=== PATIENT | male | born 1965 | race Caucasian/White ===

== ENCOUNTER → 2021-12-11 10:11 | Outpatient (BNVA) | payer BC, SELFPAY | PROVIDERS: PCP Nurse Practitioner Family; Visit Provider Nurse Practitioner Family | DX: J30.89 Other allergic rhinitis (principal); E11.9 Type 2 diabetes mellitus without complications | CPT/HCPCS: 80053; 80061; 83036; 84443; 85025; G0103 ==

== ENCOUNTER 2022-01-13 15:21 | Emergency (ER) | payer BC, SELFPAY ==
[2022-01-13 16:41] VITALS: BP 145/81; PULSE 74; RESP 18; TEMP 38.1; O2SAT 95
--- NOTE | 2022-01-13 17:37 | XRR_ITS ---
PROCEDURE INFORMATION: Exam: XR Chest Exam date and time: 01/13/2022 5:45 PM Age: 56 years old Clinical indication: Cough; Prior surgery; Surgery date: 6+ months; Surgery type: Stints; Patient HX: Covid+; Additional info: Dyspnea/cough TECHNIQUE: Imaging protocol: Radiologic exam of the chest. Views: 1 view. COMPARISON: No relevant prior studies available. FINDINGS: Lungs: Lungs are clear bilaterally. Pleural spaces: No pleural effusion. No pneumothorax. Heart/Mediastinum: The cardiac silhouette is mildly enlarged. Mediastinal contours are unremarkable. Bones/joints: Unremarkable for age. XR/XR chest 1V portable [id number] IMPRESSION: 1. No acute cardiopulmonary process. 2. Incidental/nonacute findings are listed in the report.
[2022-01-13 17:42] VITALS: O2SAT 97
[2022-01-13 17:43] VITALS: BP 157/91; PULSE 78; RESP 20; O2SAT 96
--- NOTE | 2022-01-13 17:53 | ED_ITS ---
HPI - COVID General: Chief Complaint: COVID symptoms Stated Complaint: Covid +, has hernias Time Seen by Provider: 01/13/22 17:37 Source: patient Mode of arrival: ambulatory History of Present Illness: 56-year-old male presents to the emergency room with cough congestion he had a positive COVID test yesterday. He has an abdominal wall hernia its been moderately tender he still having normal bowel movements no hematochezia or melena. He has not had any significant shortness of breath had a little myalgias headache and cough. MD complaint: known COVID positive Prior covid testing: yes, results known Prior testing date: 01/13/22 COVID 19 common symptoms: positive fever(s), chills, cough, non-productive co ugh, dyspnea and fatigue; negative productive cough, throat pain, nasal congestion, nausea, vomiting or diarrhea COVID 19 other sytmptoms: negative chest pain or requiring oxygen Onset (ago): day(s) Severity: mild Pertinent comorbid conditions: diabetes, hypertension and obesity Treatment prior to arrival: none COVID Results: No Data to Display Review of Systems Const: Reports: fever(s), chills, fatigue and malaise ENMT: Denies: throat pain, ear or mastoid pain, nasal discharge or nasal congestion Card: Denies: chest pain, edema, dyspnea on exertion or orthopnea Resp: Reports: dyspnea and non-productive cough; Denies: productive cough GI: Denies: abdominal pain, nausea, vomiting, hematemesis, coffee ground emesis, diarrhea, constipation, bloating, hematochezia or melena : Denies: flank pain, dysuria, urinary frequency or urinary urgency Skin/Breast: Denies: rash or pruritus PFSH ED PFSH: Medical History CAD (coronary artery disease) Environmental and seasonal allergies Essential hypertension GERD (gastroesophageal reflux disease) History of stomach cancer Hyperlipidemia Obstructive sleep apnea Type 2 diabetes mellitus Surgical History History of heart artery stent Hx of cholecystectomy Family History Father Diabetes Hyperlipidemia Hypertension Mother Hypertension Social History (Reviewed 12/11/21 @ 10:25 by TOMASA Arce Smoking and tobacco status: never smoked Second hand smoke exposure: No Smoking risk assessment/counseling performed?: Yes Alcohol intake: current Alcohol intake frequency: holidays/special occasions only Alcohol type: beer Desire information about alcohol rehabilitation?: No Counseling given: No Adopted: No Caregiver/support person: No Lives independently: Yes Household members: spouse Housing: Manufactured/Mobile home Marital status: Number of children: 2 Highest education level completed: Some College, No Degree service: Yes status: Retired branch: [employer] History of recent travel: No Physical Exam Const: GENERAL APPEARANCE: cooperative and comfortable ORIENTATION/CONSCIOUSNESS: Yes awake, Yes oriented to person, Yes oriented to place and Yes oriented to time HENMT: COMMON NORMALS: normocephalic, atraumatic and hearing grossly normal bilaterally HEAD & SCALP: normocephalic and atraumatic Resp: COMMON NORMALS: normal respiratory effort, No retractions and No use of accessory muscles AUSCULTATION: crackles and wheezes Cardio: COMMON NORMALS: regular rate, regular rhythm and No murmurs present (Cardio) RATE: regular rate RHYTHM: regular rhythm GI: COMMON NORMALS: Soft to palpation and No hepatosplenomegaly present AUSCULTATION: Yes normoactive bowel sounds PALPATION: Yes Soft to palpation, No Tenderness to palpation present (GI), No Guarding due to palpation present (GI) and Yes No hepatosplenomegaly present Extremity: COMMON NORMALS: normal to inspection, capillary refill normal, no clubbing, cyanosis or edema, no calf tenderness and no pedal edema Neuro: SENSORIUM/ORIENTATION: Yes oriented to person, Yes oriented to place and Yes oriented to time Skin: COMMON NORMALS: no rashes or lesions noted GENERAL SKIN EXAM: no rashes or lesions noted Course Vital Signs: Vital signs: Vital Signs Temperature 100.5 F H 01/13/22 16:41 Pulse Rate 71 01/13/22 18:49 Respiratory Rate 16 01/13/22 18:49 Blood Pressure 157/87 01/13/22 18:49 Pulse Oximetry 93 01/13/22 18:49 Oxygen Delivery Me thod 01/13/22 17:43 MDM - COVID Medical Decision Making Mild symptoms symptoms began 3 to 4 days ago. He already tested positive for COVID prior to coming to the ER. He is not requiring oxygen chest x-ray is unremarkable. He would like to use the Paxlovid. Given 5-day prescription of Paxlovid hold Ticlid during the time he is taking the Paxlovid. Recheck if has any worsening shortness of breath. Differential Diagnosis Likely COVID 19, influenza, bacterial infection, pneumonia and CHF exacerbation Medical Records I reviewed the patient's medical records. Lab Data I reviewed the patient's lab results. Radiology Impressions Chest X-Ray 01/13/22 17:37 IMPRESSION: 1. No acute cardiopulmonary process. 2. Incidental/nonacute findings are listed in the report. No Data to Display Discharge Plan Discharge Patient Disposition: Home Clinical Impression: COVID-19 Condition: Stable Prescriptions: New albuterol sulfate 90 mcg/actuation HFA aerosol inhaler 2 inh INHALATION Q4H PRN (Reason: bronchospasm) Qty: 18 0RF Paxlovid (EUA) 300 mg (150 mg x 2)-100 mg tablets,dose pack See Rx Instructions .ROUTE .COMPLEX Qty: 30 0RF Rx Instructions: orally per package directions Held ticagrelor 60 mg tablet 60 mg PO BID Qty: 180 2RF Hold Instructions: Resume on 01/18/22. No Action fexofenadine [Tootie Allergy] 60 mg tablet 60 mg PO BID aspirin 81 mg tablet,delayed release (DR/EC) 81 mg PO DAILY One-A-Day Men's Multivitamin 400-20-300 mcg tablet PO thiamine HCl (vitamin B1) 100 mg tablet 50 mg PO DAILY Zyrtec 10 mg capsule 10 mg PO DAILY PRN cinnamon bark [Cinnamon] 500 mg capsule 500 mg PO DAILY amlodipine 10 mg tablet 10 mg PO DAILY Qty: 90 1RF atorvastatin 80 mg tablet 80 mg PO DAILY Qty: 90 1RF carvedilol 12.5 mg tablet 12.5 mg PO BID Qty: 180 1RF Rx Instructions: must administer with a meal/food escitalopram oxalate 10 mg tablet 10 mg PO DAILY Qty: 90 1RF fenofibrate 160 mg tablet 160 mg PO DAILY Qty: 90 1RF hydrochlorothiazide 25 mg tablet 25 mg PO DAILY Qty: 90 1RF losartan 100 mg tablet 100 mg PO DAILY Qty: 90 1RF magnesium oxide 400 mg (241.3 mg magnesium) tablet 400 mg PO DAILY Qty: 90 1RF Bydureon BCise 2 mg/0.85 mL auto-injector 2 mg SUBCUT Q7D Qty: 10.2 1RF famotidine 20 mg tablet 20 mg PO DAILY Qty: 90 1RF metformin 500 mg tablet extended release 24 hr 1,000 mg PO DAILY 90 Days Qty: 180 1RF Discharge Orders: Discharge ED (Routine); Ordered 01/13/22 Ordered By: Jc Jeronimo Referrals: Antonia Allen FNP-C [Primary Care Provider] - Discharge Diet: Advance as tolerated Discharge Activity: Resume usual activity Patient Instructions: COVID-19 (Coronavirus Disease 2019) (ED) Coding Level of Care Code ED Museum Guide for Angel Garza
[2022-01-13 18:00] VITALS: BP 169/91; PULSE 77; O2SAT 97
[2022-01-13] MEDS: dexamethasone 10 mg/mL INJ IM (18:21)
[2022-01-13 18:49] VITALS: BP 157/87; PULSE 71; RESP 16; O2SAT 93
== END 2022-01-13 18:49 | disposition home or self-care (01) ==
PROVIDERS: Emergency Provider Family Medicine; PCP Nurse Practitioner Family
DX: U07.1 COVID-19 (principal); Z79.82 Long term (current) use of aspirin; Z79.84 Long term (current) use of oral hypoglycemic drugs; I25.10 Atherosclerotic heart disease of native coronary artery without angina pectoris; I10 Essential (primary) hypertension; E78.5 Hyperlipidemia, unspecified; E11.9 Type 2 diabetes mellitus without complications; Z85.028 Personal history of other malignant neoplasm of stomach
CPT/HCPCS: 71045; 96372; 99284; J1100

== ENCOUNTER → 2022-03-11 08:24 | Outpatient (BNVA) | payer BC, SELFPAY | PROVIDERS: PCP Nurse Practitioner Family; Visit Provider Nurse Practitioner Family | DX: S89.91XA Unspecified injury of right lower leg, initial encounter (principal); W10.2XXA Fall (on)(from) incline, initial encounter | CPT/HCPCS: 73560; 73565 ==

== ENCOUNTER 2022-03-11 09:39 | Outpatient (CLI) | payer BC, SELFPAY | END 2022-03-11 09:40 | disposition home or self-care (01) | LOC: SPT 09:40 | PROVIDERS: PCP Nurse Practitioner Family; Visit Provider Nurse Practitioner Family | DX: Z46.89 Encounter for fitting and adjustment of other specified devices (principal); M25.561 Pain in right knee | CPT/HCPCS: 97760; L1812 ==

== ENCOUNTER 2022-04-04 14:49 | Outpatient (CLI) | payer BC, SELFPAY ==
--- NOTE | 2022-04-04 15:00 | MR_ITS ---
WS: [id number] MRI RIGHT KNEE HISTORY: knee injury, progressive knee pain. Fall one month ago. COMPARISON: 04/03/2021 Anterior cruciate ligament: Intact. Posterior cruciate ligament: Abnormal signal throughout the posterior cruciate ligament. There is int erruption of the distal fibers. Proximal to the interruption there is thickening of the ligament. Medial collateral ligament: Mild displacement of the MCL by the meniscus and osteophytes. There is ed dawn surrounding the MCL. No full-thickness tear. Posterior lateral corner structures: Intact. Medial menisci: Mild surface fraying involving the anterior and posterior horns. No definite tears. Lateral meniscus: Abnormal signal involving the posterior horn and abnormal shape extending towards t he meniscal root. Suspicious for complex tear. Extensor mechanism: Distal quadriceps tendon and patellar tendons are intact. Fluid and soft tissue: Moderate joint effusion. There is extensive soft tissue edema surrounding the knee and extending posterior to the femoral condyles. No Betancourt's cyst. Osseous and articular structures: Patellofemoral compartment: Moderate narrowing of the patellofemoral joint with moderate chondromalac ia. Hepatic and loss of cartilage over the lateral patellar facet. Mild lateral subluxation of the pa tella. Moderate sprain involving the medial patellar retinaculum. Medial compartment: Moderate narrowing medial compartment with chondromalacia. Small amount of marrow edema and subchondral cystic changes involving the anteriormost tibial plateau. Lateral compartment: Mild narrowing of the lateral compartment. 8mm area of chondromalacia involving the weightbearing surface of the femoral condyle. There is additional marrow edema involving the late ral femoral condyle. MR/MR knee RT wo con* [id number] IMPRESSION: 1. Abnormal PCL. Interruption of the distal PCL with loss of the normal fibers . New since 04/03/2021. Consistent with full-thickness tear. The remaining PCL i s of abnormal signal secondary to edema. 2. Complex tear posterior horn lateral meniscus towards the meniscal root. Hailee r contiguous with the abnormal signal in the PCL. 3. Mild sprain involving the MCL and the medial patellar retinaculum 4. Moderate-sized joint effusion. 5. Moderate narrowing patellofemoral joint with chondromalacia involving the l ateral patellar facet. 6. 8mm chondromalacia weightbearing surface lateral femoral condyle. 7. Mild marrow edema lateral femoral condyle.
== END 2022-04-04 14:50 | disposition home or self-care (01) ==
PROVIDERS: PCP Nurse Practitioner Family; Visit Provider Nurse Practitioner Family
DX: S83.281A Other tear of lateral meniscus, current injury, right knee, initial encounter (principal); S83.411A Sprain of medial collateral ligament of right knee, initial encounter; W19.XXXA Unspecified fall, initial encounter; R93.6 Abnormal findings on diagnostic imaging of limbs
CPT/HCPCS: 73721

== ENCOUNTER 2022-05-08 05:48 | Day surgery (SDC) | payer BC, SELFPAY ==
[2022-05-07 13:52] VITALS: BMI 40.8
[2022-05-08] VITALS (11 sets, daily range): BP systolic 109–142; BP diastolic 68–84; PULSE 54–65; RESP 10–18; TEMP 36.2–36.3; O2SAT 92–95
[2022-05-08] MEDS: sodium chloride 0.9% 1,000 ML 30 ML IV (06:11)
[2022-05-08] MEDS: CELEcoxib 200 mg Capsule 400 MG PO (06:11)
[2022-05-08] MEDS: acetaminophen 500 mg Tablet 1000 MG PO (06:11)
[2022-05-08 06:16] LABS: Glucose Point of Care 153 mg/dL (70-110)
--- NOTE | 2022-05-08 07:08 | W.PM.OPSUD ---
Surgery/Procedure H&P Update DATE OF PROCEDURE: May 08, 2022 DATE H&P PERFORMED: 04/15/22 H&P UPDATE INFORMATION: I have reviewed H&P completed within last 30 days PREOP DIAGNOSIS: Right medial meniscal tear PLANNED PROCEDURE: Operation Date: 05/08/22 07:00 Proposed Procedures p right knee arthroscopy/ [id number],S83.206A(Right) - Yevgeniy Nugent MD
[2022-05-08] MEDS: ceFAZolin 2,000 MG in sodium chloride 0.9% (plus) 50 ML 100 MG IV (07:14)
--- NOTE | 2022-05-08 07:18 | P.ANESASSM_ITS ---
Pre-Anesthetic Assessment Height/Weight: Height 1.85 m Weight 140.614 kg Temp Pulse Resp BP Pulse Ox O2 Del Method 97.2 F L 65 18 142/83 93 05/08/22 06:04 05/08/22 06:04 05/08/22 06:04 05/08/22 06:04 05/08/22 06:04 05/08/22 06:04 Preop Diagnosis: Right medial meniscal tear Operation Date: 05/08/22 07:00 Proposed Procedures p right knee arthroscopy/ [id number],S83.206A(Right) - Yevgeniy Nugent MD Familial anesthetic complications: none Was Beta Holli taken within 24 hours: Yes Was Clonidine taken within 24 hours: N/A Last intake: Intake Last Liquid Date 05/07/22 Last Liquid Time 20:00 Last Solid Date 05/07/22 Last Solid Time 18:00 Social Alcohol and No tobacco Exam alert, oriented x 3, clear to auscultation bilaterally and regular rate & rhythm Airway Submandibular: within normal limits Cervical ROM: within normal limits Mallampati: Class II Dentition: full Pulmonary Sleep Apnea CV/HEM Coronary Artery Disease (stent) and Hypertension GI Gastroesophageal Reflux Disease Metabolic Diabetes Mellitus, Hyperlipidemia and Morbid Obesity Anesthetic Plan ASA status: 3 Anesthesia: General Medications/Allergies Home Medications Medication Instructions Recorded Confirmed Last Taken Type aspirin 81 mg tablet,delayed 81 mg PO DAILY 09/02/21 05/07/22 05/02/22 History release cetirizine 10 mg capsule (Zyrtec) 10 mg PO DAILY PRN Allergy Symptoms 09/02/21 05/07/22 05/07/22 History cinnamon bark 500 mg capsule 500 mg PO DAILY 09/02/21 05/07/22 05/07/22 History (Cinnamon) fexofenadine 60 mg tablet (Tootie 60 mg PO BID 09/02/21 05/07/22 05/07/22 History Allergy) vkeffvar-iroksele-vssgu acid 400 1 tab PO DAILY 09/02/21 05/07/22 05/07/22 History mcg-vit K 20 mcg-lycop 300 mcg tablet (One-A-Day Men's Multivitamin) thiamine HCl (vitamin B1) 100 mg 50 mg PO DAILY 09/02/21 05/07/22 05/07/22 History tablet amlodipine 10 mg tablet 10 mg PO DAILY #90 tabs 12/11/21 05/07/22 05/07/22 Rx atorvastatin 80 mg tablet 80 mg PO DAILY #90 tabs 12/11/21 05/07/22 05/07/22 Rx carvedilol 12.5 mg tablet 12.5 mg PO BID #180 tabs 12/11/21 05/07/22 05/08/22 Rx escitalopram oxalate 10 mg tablet 10 mg PO DAILY #90 tabs 12/11/21 05/07/22 05/07/22 Rx exenatide microspheres 2 mg/0.85 2 mg (0.85 mL) SUBCUT Q7D #10.2 mL 12/11/21 05/07/22 05/03/22 Rx mL subcutaneous auto-injector ([employer]) fenofibrate 160 mg tablet 160 mg PO DAILY #90 tabs 12/11/21 05/07/22 05/07/22 Rx hydrochlorothiazide 25 mg tablet 25 mg PO DAILY #90 tabs 12/11/21 05/07/22 05/07/22 Rx losartan 100 mg tablet 100 mg PO DAILY #90 tabs 12/11/21 05/07/22 05/07/22 Rx magnesium oxide 400 mg (241.3 mg 400 mg PO DAILY #90 tabs 12/11/21 05/07/22 05/07/22 Rx magnesium) tablet metformin 500 mg tablet,extended 1,000 mg PO DAILY 90 days #180 tabs 12/20/21 05/07/22 05/07/22 Rx release 24 hr HINGED KNEE BRACE #1 ea 03/11/22 04/30/22 Unknown Rx dapagliflozin 5 mg tablet (Farxiga) 5 mg PO DAILY 03/11/22 05/07/22 05/07/22 History tramadol 50 mg tablet 50 mg PO Q6H PRN pain #30 tabs 03/12/22 05/07/22 05/06/22 Rx ticagrelor 60 mg tablet 90 mg PO BID 04/30/22 05/07/22 05/02/22 History famotidine 20 mg tablet 20 mg PO BID 05/07/22 05/07/22 05/07/22 History Allergies Allergy/AdvReac Type Severity Reaction Status Date / Time blue dye Allergy ALGY-Hives Verified 03/11/22 08:14 Penicillins Allergy hives Verified 03/11/22 08:14 Current Medications Generic Name Dose Route Start Last Admin Trade Name Scarlett PRN Reason Stop Dose Admin Sodium Chloride 1,000 mls @ 30 mls/hr 05/08/22 06:00 05/08/22 06:11 Sodium Chloride 0.9% IV 05/09/22 05:59 30 mls/hr .Q24H KAYLA Administration Cefazolin Sodium 2,000 mg/ 50 mls @ 100 mls/hr 05/08/22 06:59 05/08/22 07:14 Sodium Chloride IV 05/08/22 07:28 100 mls/hr [employer] Administration Protocol [facility] Anesthesia Medical History CAD (coronary artery disease) Environmental and seasonal allergies Essential hypertension GERD (gastroesophageal reflux disease) History of stomach cancer Hyperlipidemia Obstructive sleep apnea Type 2 diabetes mellitus Surgical History History of heart artery stent Hx of cholecystectomy Family History Father Diabetes Hyperlipidemia Hypertension Mother Hypertension Social History Smoking and tobacco status: never smoked Second hand smoke exposure: No Smoking risk assessment/counseling performed?: Yes Alcohol intake: current Alcohol intake frequency: holidays/special occasions only Alcohol type: beer Desire information about alcohol rehabilitation?: No Counseling given: No Adopted: No Caregiver/support person: No Lives independently: Yes Household members: spouse Housing: Manufactured/Mobile home Marital status: Number of children: 2 Highest education level completed: Some College, No Degree service: Yes status: Retired branch: [employer] History of recent travel: No Data Anesthesia Cardiac Studies: No Data to Display
[2022-05-08] MEDS: morphine 4 mg/mL SDV 1 mL 8 MG XX (07:49)
--- NOTE | 2022-05-08 08:23 | P.OP_ITS ---
Operative Report Date of procedure: May 08, 2022 Pre-op diagnosis: Preop Diagnosis Right medial meniscal tear Post-op diagnosis: same Post-op diagnosis: Right medial and lateral meniscal tear, under malacia right knee Procedure done: Arthroscopic partial right medial and lateral meniscectomy Pathology: none sent Surgeon: Yevgeniy Nugent Anesthesia: General Estimated blood loss (mL): 5 Findings: The patient had degenerative tearing of the central 50% of the posterior medial meniscus but a intact meniscal root. He had degenerative flaps and tearing of the posterior third of the lateral meniscus with with an intact lateral meniscal root. There was thinning of the cartilage over the medial and lateral femoral condyles but no exposed subchondral bone in the medial or lateral compartment. He had exposed subchondral bone over the medial facet of the patella and far medial trochlea with fissuring and thinning over the lateral facet and lateral Disposition: PACU Procedure: Ho was taken to the operating room and given a general anesthesia. His right knee was prepped with ChloraPrep. The knee was infiltrated with 30 cc of 0.5% Marcaine and 8 mg of morphine. The leg was draped in the usual fashion. A timeout was performed. The was entered through a standard inferior medial and inferior lateral portal. The diagnostic portion arthroscopy is performed. Initial attention was paid to the medial meniscus. The medial meniscus was probed with a vertical tear identified in the posterior third of the meniscus. The root itself was probed and felt to be stable. Utilizing a straight basket the posterior third of the meniscus was debrided back. The rim was cleaned up with an incisor shaver and [employer] probe. This left approximately 50% of the posterior third of the meniscus behind. Generalized thinning was identified over the medial femoral condyle more so than the medial tibial plateau but no unstable flaps or fissures were identified to benefit from additional debridement. The leg was then placed in a [id number] position the lateral compartment explored. Complex tearing was identified in the posterior third of the lateral meniscus. A basket was introduced and the 6 central 30% of the meniscus removed. The rim was cleaned up with the [employer]rewolf probe. This left approximately 60% of the posterior lateral meniscus present. Again fibrillation and thinning was identified of the lateral femoral condyle but no unstable flaps or fissures were identified to benefit from additional debridement. Final attention was focused on the patellofemoral joint. Areas of full- thickness cartilage loss were identified over the lateral facet of the patella and lateral trochlea. Thinning and fibrillation was identified and over the medial facet of the patella and medial trochlea but really no unstable flaps and fissures were present to suggest additional treatment be worthwhile. The knee was irrigated with saline. Portals were closed with 3-0 Prolene. Sterile dressings were applied. The patient was extubated and taken to recovery room in stable condition.
--- NOTE | 2022-05-08 08:24 | PC.NURSE ---
Arouses with verbal stimulation
--- NOTE | 2022-05-08 08:28 | PC.NURSE ---
SaO2 88-89% on room air. Applied O2 @ 2l/nc. Pt wears cpap for TJ
[2022-05-08] MEDS: HYDROcodone-acetaminophen 5-325 mg Tablet 1 TAB PO (09:35)
--- NOTE | 2022-05-08 18:14 | ANE.PACU2 ---
Inpatient post-anesthesia follow up: Airway intact: Yes Vital signs: Temperature 97.3 F Pulse Rate 62 Respiratory Rate 16 Blood Pressure 120/73 Pulse Oximetry 93 Oxygen Delivery Me thod Nasal Cannula Oxygen Flow Rate 2 Fraction of Inspir ed Oxygen Hydration adequate: Yes Nausea and vomiting: No Pain level: 3 Mental status: Baseline
== END 2022-05-08 09:50 | disposition home or self-care (01) ==
PROVIDERS: PCP Nurse Practitioner Family; Visit Provider Orthopaedic Surgery
PROC: (CPT 29870; principal; 2022-05-08 07:00)
DX: S83.241A Other tear of medial meniscus, current injury, right knee, initial encounter (principal); X58.XXXA Exposure to other specified factors, initial encounter; M83.8 Other adult osteomalacia; G47.30 Sleep apnea, unspecified; I25.10 Atherosclerotic heart disease of native coronary artery without angina pectoris; Z95.5 Presence of coronary angioplasty implant and graft; I10 Essential (primary) hypertension; K21.9 Gastro-esophageal reflux disease without esophagitis; E11.9 Type 2 diabetes mellitus without complications; E78.5 Hyperlipidemia, unspecified; E66.01 Morbid (severe) obesity due to excess calories; Z68.41 Body mass index [BMI] 40.0-44.9, adult; Z79.82 Long term (current) use of aspirin; G47.33 Obstructive sleep apnea (adult) (pediatric)
CPT/HCPCS: 29880; 36416; 82962; J0330; J0690; J1100; J2250; J2270; J2405; J2704; J2710; J3010; J3490; J7030

== ENCOUNTER 2022-05-21 06:00 | Outpatient (RCR) | payer BC, SELFPAY | END 2022-06-20 23:59 | disposition home or self-care (01) | LOC: APT 06:00 | PROVIDERS: PCP Nurse Practitioner Family; Visit Provider Orthopaedic Surgery | DX: Z47.89 Encounter for other orthopedic aftercare (principal) | CPT/HCPCS: 97110; 97112; 97161 ==

== ENCOUNTER 2022-06-21 06:00 | Outpatient (RCR) | payer BC, SELFPAY | END 2022-07-20 23:59 | disposition home or self-care (01) | LOC: APT 06:00 | PROVIDERS: PCP Nurse Practitioner Family; Visit Provider Orthopaedic Surgery | DX: Z47.89 Encounter for other orthopedic aftercare (principal) | CPT/HCPCS: 97110; 97530 ==

== ENCOUNTER → 2022-07-30 09:09 | Outpatient (BNVA) | payer BC, SELFPAY | PROVIDERS: PCP Nurse Practitioner Family; Visit Provider Nurse Practitioner Family | DX: E11.9 Type 2 diabetes mellitus without complications (principal) | CPT/HCPCS: 80053; 80061; 83036; 84443; 85025 ==

== ENCOUNTER → 2022-09-17 08:20 | Outpatient (BNVA) | payer BC, SELFPAY | PROVIDERS: PCP Nurse Practitioner Family; Visit Provider Nurse Practitioner Family | DX: I10 Essential (primary) hypertension (principal) | CPT/HCPCS: 85025 ==

== ENCOUNTER 2023-02-25 09:37 | Outpatient (CLI) | payer BC, SELFPAY ==
--- NOTE | 2023-02-25 09:30 | USCV_ITS ---
Ho Lee Age: 57 Gender: M : 1965 Exam Date: 02/25/2023 10:05 Ordering Phys: Jackie Matthews MD ([email or web address]) Technologist: CAMERON [place] [facility] [place]: HISTORY: PROCEDURES: FINDINGS: LT SSV mid and prox calf are noncompressible. Pt has had a bilateral ablation . the veins were found to be easily compressible with spontaneous blood flow. Non pulsatile flow pattern. Venous reflux was noted in the mid small saphenous vein on the right side. The reflux time was 1.06 seconds. The venous segment was 0.63 cm deep from the surface with a diameter of 0.4 cm. Venous reflux of 1.28-second pause noted in the greater saphenous vein distal to the saphenofemoral junction on the left side. This segment was at the 1.09 cm deep from the surface. CONCLUSIONS 1. The small saphenous vein on the left side was found to be noncompressible suggesting thrombosis(? ablated) 2. Venous reflux of greater than 500 ms was noted at the mid small saphenous vein segment on the right side. But the vein was found to be very superficial. The mid, distal and below-knee segment of the greater saphenous vein on the right appeared to be a small caliber and superficial. 3. Venous reflux of greater than 500 ms also was noted in the greater saphenous vein just distal to the saphenofemoral junction, on the left side. This segment was of 1.06 cm deep from the surface and has a diameter of 0.5 by centimeters. The proximal and mid greater saphenous vein on the left side was visualized well. There is no documentation of venous flow in this segments. The distal and below-knee segment of the greater saphenous vein was found to be patent with some normal blood flow. 4. No significant reflux in the deep veins or any DVT Dr Delbert Culp MD FAC (Electronically Signed) Final Date: 27 February 2023 12:00 S
== END 2023-02-25 09:38 | disposition home or self-care (01) ==
LOC: RAD 09:37
PROVIDERS: PCP Nurse Practitioner Family; Visit Provider Internal Medicine Cardiovascular Disease
DX: I83.90 Asymptomatic varicose veins of unspecified lower extremity (principal)
CPT/HCPCS: 80053; 80061; 83036; 84443; 85025; 93970; G0103

== ENCOUNTER 2023-02-27 08:54 | Outpatient (CLI) | payer BC, SELFPAY ==
--- NOTE | 2023-02-27 09:30 | USCV_ITS ---
Ho Lee Age: 57 Gender: M : 1965 Exam Date: 02/27/2023 10:09 Ordering Phys: Jackie Matthews MD ([email or web address]) Technologist: Exam Location: [facility] [place] Indication: pain FINDINGS Resting CALLY of 1.16 on the right side and 1.12 on the left side Resting TBI of 0.894 0.94 on the right side and 0.9 on the left side CONCLUSIONS 1. Normal resting ABIs and TBIs bilaterally 2. No significant arterial obstruction, based on the above findings Dr Delbert Culp MD [facility] (Electronically Signed) Final Date: 27 February 2023 14:33 S
== END 2023-02-27 08:55 | disposition home or self-care (01) ==
LOC: RAD 08:55
PROVIDERS: PCP Nurse Practitioner Family; Visit Provider Internal Medicine Cardiovascular Disease
DX: I83.93 Asymptomatic varicose veins of bilateral lower extremities (principal); M79.89 Other specified soft tissue disorders; M79.669 Pain in unspecified lower leg
CPT/HCPCS: 93923

== ENCOUNTER → 2023-05-01 08:32 | Outpatient (BNVA) | payer BC, SELFPAY | PROVIDERS: PCP Nurse Practitioner Family; Visit Provider Urology | DX: N52.9 Male erectile dysfunction, unspecified (principal) | CPT/HCPCS: 84403; G0103 ==

== ENCOUNTER 2023-07-09 20:00 | Outpatient (CLI) | payer BC, SELFPAY | END 2023-07-09 20:01 | disposition home or self-care (01) | LOC: SLEEP 07-10 05:18 | PROVIDERS: PCP Nurse Practitioner Family; Visit Provider Nurse Practitioner Family | DX: G47.33 Obstructive sleep apnea (adult) (pediatric) (principal) | CPT/HCPCS: 95811 ==

== ENCOUNTER → 2023-07-28 15:05 | Outpatient (BNVA) | payer BC, SELFPAY | PROVIDERS: PCP Nurse Practitioner Family; Visit Provider Internal Medicine Cardiovascular Disease | DX: R07.9 Chest pain, unspecified (principal) | CPT/HCPCS: 93005 ==

== ENCOUNTER 2023-08-17 19:57 | Emergency (ER) | payer BC, SELFPAY ==
--- NOTE | 2023-08-17 20:00 | ECG_ITS ---
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 Measurements Intervals [place] Rate: 70 P: 40 SC: 153 QRS: 47 QRSD: 90 T: 84 QT: 383 QTc: 415 Interpretive Statements SINUS RHYTHM MODERATE T-WAVE ABNORMALITY, CONSIDER LATERAL ISCHEMIA [-0.1+ mV T-WAVE IN I/aVL/V5/V6] MODERATE T-WAVE ABNORMALITY, CONSIDER INFERIOR ISCHEMIA [-0.1+ mV T-WAVE IN II/aVF] Compared to ECG 07/28/2023 15:08:12 Possible ischemia now present T-wave abnormality still present Electronically Signed On 08-18-2023 16:50:51 CDT by Jose Muir M.D. [email or web address]
--- NOTE | 2023-08-17 20:00 | XRR_ITS ---
PROCEDURE INFORMATION: Exam: XR Chest Exam date and time: 08/17/2023 8:14 PM Age: 58 years old Clinical indication: Pain; Chest pressure; Additional info: Cp TECHNIQUE: Imaging protocol: Radiologic exam of the chest. Views: 1 view. COMPARISON: CR XR chest 1V portable [id number] 01/13/2022 5:45 PM FINDINGS: Lungs: Bibasilar atelectasis versus minimal infiltrate. Pleural spaces: Unremarkable. No pleural effusion. No pneumothorax. Heart/Mediastinum: Unremarkable. No cardiomegaly. Bones/joints: Unremarkable. XR/XR chest 1V portable [id number] IMPRESSION: Bibasilar atelectasis versus minimal infiltrate.
[2023-08-17 20:01] VITALS: BP 116/74; PULSE 68; RESP 24; TEMP 36.9; O2SAT 95; BMI 39.0
[2023-08-17 20:22] LABS: Basophils % 0.4 %; Eosinophils # 0.3 10^3/uL (0.0-0.8); Eosinophils % 4.8 %; Hematocrit 50.3 % (37-53); Lymphocytes # 1.7 10^3/uL (0.8-4.8); Lymphocytes % 30.3 %; Mean Corpuscular HGB Conc 34.2 g/dL (30-55); Mean Corpuscular Hemoglobin 32.3 pg (27-33); Mean Corpuscular Volume 94.4 fl (82-101); Mean Platelet Volume 10.2 fL (7.4-10.4); Monocytes # 0.9 10^3/uL (0.2-0.9); Monocytes % 15.4 %; Neutrophils # 2.75 10^3/uL (1.8-7.7); Neutrophils % 48.7 %; Nucleated Red Blood Cells % 0 %; Platelet Count 151 10^3/cmm (157-399); Red Blood Count 5.33 10^6/uL (3.85-5.65); Red Cell Distribution Width 12.9 % (12.1-15.1); White Blood Count 5.64 10^3/uL (3.29-11.43)
--- NOTE | 2023-08-17 20:23 | ED_ITS ---
Documented by User: [email or web address] Mo 08/17/23 22:30 HPI - Chest Pain 2 General: Chief Complaint: Chest Pain Stated Complaint: Chest pain/Tightness Time Seen by Provider: 08/17/23 20:11 Source: patient Mode of arrival: ambulatory Limitations: no limitations History of Present Illness: Patient is a 58-year-old male presenting to the emergency department complaining of fatigue and substernal chest pain for the past 2 days. Patient notes that these are identical symptoms to the ones he had back in 2020 when he had his first and only heart attack. He states he is just getting checked out before he gets worse. The pain over the past 2 days has been intermittent, currently he is not having the pain. He has of the pain, he comments that it is a pressure sensation that does not radiate and is only located substernally. He is denying any changes in breathing, stating he has a history of sleep apnea and he is always short of breath. He also states he always has swelling to his lower extremities and that this also has not worsened. He has a significant past medical history including diabetes and stomach cancer. He notes his cancer is in remission and his sugars have been running in the 200s lately, this is elevated for him. He sees Dr. Culp for cardiology, stating that he last saw them a month ago and had a routine EKG done which was unremarkable. He notes this is the only time he has seen cardiology this year and he has no recent echocardiogram or stress test. He does note history of stents stemming from his prior heart attack. He has no other symptoms to report at this time. He does comment that he has a history of acid reflux and that this does not feel similar. 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 Onset (ago): day(s) Timing of current episode: episodic Prior episodes: Yes Onset: during rest Pain location: substernal Pain radiation: none Severity: moderate Quality: other (Pressure) Associated symptoms: Deny abdominal pain, dyspnea, fever(s), nausea, palpitations or vomiting Risk Factors: Coronary artery disease risk factors: diabetes, hyperlipidemia and hypertension Review of Systems 2 General: Reports: 10 or more systems reviewed and unremarkable except in HPI and below Const: Reports: fatigue; Denies: fever(s) or chills Eyes: Denies: change in vision ENMT: Denies: throat pain, ear or mastoid pain or nasal discharge Card: Reports: chest pain; Denies: palpitations, swelling of feet/ankles or lightheadedness Resp: Denies: dyspnea, productive cough or wheezing GI: Denies: abdominal pain, nausea, vomiting, diarrhea or constipation : Denies: flank pain, difficulty urinating, dysuria or urinary frequency Musc: Denies: neck pain, back pain or joint pain Skin/Breast: Denies: rash Neuro: Denies: headache(s), numbness in extremities or weakness in extremities PFSH ED 2 PFSH: Medical History Obstructive sleep apnea CAD (coronary artery disease) History of stomach cancer Environmental and seasonal allergies Hyperlipidemia Essential hypertension GERD (gastroesophageal reflux disease) Type 2 diabetes mellitus Surgical History History of heart artery stent Hx of cholecystectomy Family History Father Diabetes Hyperlipidemia Hypertension Mother Hypertension Social History Smoking and tobacco/nicotine status: never used tobacco/nicotine Second hand smoke exposure: No Alcohol intake: current Alcohol intake frequency: holidays/special occasions only Alcohol type: beer Adopted: No Caregiver/support person: No Lives independently: Yes Household members: spouse Housing: Manufactured/Mobile home Marital status: Number of children: 2 Highest education level completed: Some College, No Degree service: Yes status: Retired branch: [employer] Physical Exam 2 Const: COMMON NORMALS: no acute distress, patient oriented x3 and no limitations GENERAL APPEARANCE: cooperative, comfortable and well developed NUTRITIONAL APPEARANCE: obese ORIENTATION/CONSCIOUSNESS: Yes awake, Yes oriented to person, Yes oriented to place and Yes oriented to time HENMT: COMMON NORMALS: normocephalic, atraumatic and hearing grossly normal bilaterally HEAD & SCALP: normocephalic and atraumatic Eye: COMMON NORMALS: Equal, round and reactive pupils present, EOMs intact bilaterally and conjunctivae normal CONJUNCTIVA: Yes conjunctivae normal P UPIL: Yes Equal, round and reactive pupils present Neck/C-Spine: COMMON NORMALS: full ROM, supple and no JVD Chest: COMMONS NORMALS: normal inspection of the chest and normal palpation of entire chest wall Resp: COMMON NORMALS: normal respiratory effort, No retractions, No use of accessory muscles and clear to auscultation bilaterally AUSCULTATION: clear to auscultation bilaterally Cardio: COMMON NORMALS: no JVD, regular rate, regular rhythm, No clicks present (Cardio) and No rub (Cardio) RATE: regular rate RHYTHM: regular rhythm HEART SOUNDS: Murmur heart sound present systolic GI: COMMON NORMALS: Normal to inspection, nondistended, normoactive bowel sounds present, Soft to palpation and non-tender INSPECTION: Yes central obesity AUSCULTATION: Yes normoactive bowel sounds PALPATION: Yes Soft to palpation RECTAL EXAM: Yes deferred Extremity: COMMON NORMALS: full ROM and capillary refill normal NARRATIVE EXTREMITY EXAM: 1+ edema bilaterally Neuro: COMMON NORMALS: patient oriented x3, moves all extremities, no focal motor deficits and no sensory deficits noted SENSORIUM/ORIENTATION: Yes oriented to person, Yes oriented to place and Yes oriented to time Psych: COMMON NORMALS: mental status grossly normal and Normal thought process present THOUGHT PROCESS: Normal thought process present Skin: COMMON NORMALS: no rashes or lesions noted GENERAL SKIN EXAM: no rashes or lesions noted Course 2 Vital Signs: Vital signs: Vital Signs Temperature 98.4 F 08/17/23 20:01 Pulse Rate 64 08/17/23 23:22 Respiratory Rate 18 08/17/23 23:22 Blood Pressure 125/69 08/17/23 23:22 Pulse Oximetry 94 08/17/23 23:22 Oxygen Delivery Me thod Room Air 08/17/23 20:41 MDM - Chest Pain Medical Decision Making Patient had presented for fatigue and chest pain for the past couple days. States he came in for precautionary purposes as these were symptoms he had with prior heart attack 3 years ago. His initial EKG showed normal sinus rhythm rate [address] segment changes. As per troponin unremarkable, and follow- up troponin did not demonstrate any concerning trends. Basic lab work all unremarkable, blood glucose was understandably elevated due to his history of type 2 diabetes. I did give him some p.o. potassium due to a very mild decrease, though I do not believe this is related to his fatigue. I did scan his abdomen with CT due to history of stomach cancer, though this did not demonstrate any acute findings or reasons for his fatigue. Chest x-ray revealed bibasilar atelectasis versus infiltrate, I also do not believe this is cause for his pain. Urinalysis was normal. I informed him of his essentially negative workup, and informed him to follow-up with his application support consultant this week or next for further outpatient management. He is to continue taking his [id number] famotidine for any potential GERD, as this may likely be a cause for his substernal pain, however also could potentially be musculoskeletal in nature. He is to take the rest of his medications as prescribed and additionally follow-up with primary care to discuss ED visit and any further outpatient management. Reasons to return were thoroughly discussed, and patient understands and is ready for discharge home. Lab Data 08/17/23 20:15 08/17/23 20:15 Radiology Impressions Chest X-Ray 08/17/23 20:00 IMPRESSION: Bibasilar atelectasis versus minimal infiltrate. Abdomen/Pelvis CT 08/17/23 20:44 IMPRESSION: 1. Urinary bladder wall thickening likely due to nondistention, please correlate for cystitis. 2. Hepatic steatosis. 3. Cholecystectomy. 4. Right kidney lower pole nonobstructing calyceal stone. 5. Left kidney cyst, negative for follow up. 6. Mild perinephric edema bilaterally likely reflecting renal insufficiency, please correlate for pyelonephritis. 7. Diverticulosis without diverticulitis. 8. Probable hyperdense ingested material seen at the gastroesophageal junction. Laboratory Results WBC 5.64 10^3/uL (3.29-11.43) 08/17/23 20:15 RBC 5.33 10^6/uL (3.85-5.65) 08/17/23 20:15 Hgb 17.20 g/dL (11.27-16.99) H 08/17/23 20:15 Hct 50.3 % (37-53) 08/17/23 20:15 MCV 94.4 fl (82-101) 08/17/23 20:15 MCH 32.3 pg (27-33) 08/17/23 20:15 MCHC 34.2 g/dL (30-55) 08/17/23 20:15 RDW 12.9 % (12.1-15.1) 08/17/23 20:15 Plt Count 151 10^3/cmm (157-399) L 08/17/23 20:15 MPV 10.2 fL (7.4-10.4) 08/17/23 20:15 Neut % (Auto) 48.7 % 08/17/23 20:15 Lymph % (Auto) 30.3 % 08/17/23 20:15 [place] % (Auto) 15.4 % 08/17/23 20:15 Eos % (Auto) 4.8 % 08/17/23 20:15 Baso % (Auto) 0.4 % 08/17/23 20:15 Neut # (Auto) 2.75 10^3/uL (1.8-7.7) 08/17/23 20:15 Lymph # (Auto) 1.7 10^3/uL (0.8-4.8) 08/17/23 20:15 [place] # (Auto) 0.9 10^3/uL (0.2-0.9) 08/17/23 20:15 Eos # (Auto) 0.3 10^3/uL (0.0-0.8) 08/17/23 20:15 Baso # (Auto) 0.0 10^3/uL (0.0-0.1) 08/17/23 20:15 Nucleated RBC % (auto) 0 % 08/17/23 20:15 Nucleated RBCs # 0.0 /100WBC 08/17/23 20:15 PT 12.40 SECONDS (12.1-14.9) 08/17/23 20:15 INR 0.90 (0.8-1.2) 08/17/23 20:15 Sodium 139 mmol/L (136-145) 08/17/23 20:15 Potassium 3.3 mmol/L (3.5-5.1) L 08/17/23 20:15 Chloride 102 mmol/L (98-107) 08/17/23 20:15 Carbon Dioxide 24 mmol/L (22-29) 08/17/23 20:15 Anion Gap 16.3 (5-19) 08/17/23 20:15 BUN 17 mg/dL (6-20) 08/17/23 20:15 Creatinine 1.0 mg/dL (0.7-1.2) 08/17/23 20:15 GFR Calculation 76.5 mL/min (90-130) L 08/17/23 20:15 Glucose 236 mg/dL (65-115) H 08/17/23 20:15 Calculated Osmolality 297 mOsm/kg (285-295) H 08/17/23 20:15 Calcium 9.2 mg/dL (8.5-10.5) 08/17/23 20:15 Total Bilirubin 0.5 mg/dL (0.15-1.2) 08/17/23 20:15 AST 29 U/L (0-40) 08/17/23 20:15 ALT 32 U/L (0-41) 08/17/23 20:15 Alkaline Phosphatase 77 U/L (40-130) 08/17/23 20:15 Troponin T Baseline 16 ng/L (0-15) H 08/17/23 20:15 Troponin T 120 Minute 16.62 ng/L (0-15) H 08/17/23 21:54 Delta Troponin T 0.62 ABS# (0-10) 08/17/23 21:54 Total Protein 7.7 g/dL (6.6-8.7) 08/17/23 20:15 Albumin 4.0 g/dL (3.5-5.2) 08/17/23 20:15 Globulin 3.7 g/dL (1.3-4.6) 08/17/23 20:15 Lipase 71 U/L (13-60) H 08/17/23 20:15 Urine Color Yellow (Yellow) 08/17/23 20:53 Urine Appearance Clear (CLEAR) 08/17/23 20:53 Urine pH 5 (5-7) 08/17/23 20:53 Ur Specific [place] 1.010 (1.005-1.030) 08/17/23 20:53 Urine Protein Neg (Negative) 08/17/23 20:53 Urine Glucose (UA) 4+ (Normal) H 08/17/23 20:53 Urine Ketones Negative (Negative) 08/17/23 20:53 Urine Blood Neg (Negative) 08/17/23 20:53 Urine Nitrate Negative (Negative) 08/17/23 20:53 Urine Bilirubin Neg (Negative) 08/17/23 20:53 Urine Urobilinogen Neg mg/dL (Negative) 08/17/23 20:53 Ur Leukocyte Esterase Negative (Negative) 08/17/23 20:53 All radiology interpretation(s) finalized by discharge Discharge Plan Discharge Patient Disposition: Home Clinical Impression: Chest pain Qualifiers: Chest pain type: unspecified Qualified Code(s): R07.9 - Chest pain, unspecified Condition: Stable Prescriptions: No Action (DME) HINGED KNEE BRACE See Rx Instructions .Route .MEDSUPPLY Qty: 1 0RF Rx Instructions: As directed naproxen [Naprosyn] 500 mg tablet 500 mg PO BID 30 Days Qty: 60 0RF naproxen [EC-Naprosyn] 500 mg tablet,delayed release (DR/EC) 500 mg PO Q12H 14 Days Qty: 28 0RF ondansetron HCl 4 mg tablet 4 mg PO Q8H PRN (Reason: nausea and vomiting) 3 Days Qty: 9 0RF carvedilol 12.5 mg tablet 12.5 mg PO BID Qty: 180 1RF Rx Instructions: must administer with a meal/food Farxiga 5 mg tablet 5 mg PO DAILY Qty: 90 1RF escitalopram oxalate 10 mg tablet 10 mg PO DAILY Qty: 90 1RF fenofibrate 160 mg tablet 160 mg PO DAILY Qty: 90 1RF hydrochlorothiazide 25 mg tablet 25 mg PO DAILY Qty: 90 1RF losartan 100 mg tablet 100 mg PO DAILY Qty: 90 1RF magnesium oxide 400 mg (241.3 mg magnesium) tablet 400 mg PO DAILY Qty: 90 1RF metformin 500 mg tablet extended release 24 hr 1,000 mg PO DAILY 90 Days Qty: 180 1RF famotidine 40 mg tablet 40 mg PO BID Qty: 180 1RF Bydureon BCise 2 mg/0.85 mL auto-injector 2 mg SUBCUT Q7D Qty: 10.2 1RF atorvastatin 80 mg tablet 80 mg PO DAILY Qty: 90 1RF amlodipine 10 mg tablet 10 mg PO DAILY Qty: 90 1RF (DME) CPAP auto titrating Machine w/supplies See Rx Instructions .Route .MEDSUPPLY Qty: 1 0RF Rx Instructions: As directed 99 months CPAP auto titrating machine w/supplies 6-20cm fexofenadine [Tootie Allergy] 60 mg tablet 60 mg PO BID aspirin 81 mg tablet,delayed release (DR/EC) 81 mg PO DAILY One-A-Day Men's Multivitamin 400-20-300 mcg tablet 1 tab PO DAILY thiamine HCl (vitamin B1) 100 mg tablet 50 mg PO DAILY Zyrtec 10 mg capsule 10 mg PO DAILY PRN (Reason: Allergy Symptoms) cinnamon bark [Cinnamon] 500 mg capsule 500 mg PO DAILY ticagrelor 60 mg tablet 90 mg PO BID Qty: 270 1RF Hold Instructions: Resume on 01/18/22. Discharge Orders: Discharge ED (Routine); Ordered 08/17/23 Ordered By: Valerio Dubose Referrals: Antonia Allen FNP-C [Primary Care Provider] - Discharge Diet: Usual diet Discharge Activity: Increase activity as tolerated Patient Instructions: Chest Pain (ED) Activity Restrictions/Additional Instructions: Continue taking your home medications as normal. Follow-up with cardiology this week as discussed. Please return with any new or worsening symptoms you may have. Coding Level of Care Code ED Oxygen Equipment Preparer for Chg Fwd Documented by User: Jc Jeronimo DO 08/24/23 07:27 HPI - Chest Pain 2 General: Chief Complaint: Chest Pain Stated Complaint: Chest pain/Tightness Time Seen by Provider: 08/17/23 20:11 [facility] ED 2 PFSH: Medical History Obstructive sleep apnea CAD (coronary artery disease) History of stomach cancer Environmental and seasonal allergies Hyperlipidemia Essential hypertension GERD (gastroesophageal reflux disease) Type 2 diabetes mellitus Surgical History History of heart artery stent Hx of cholecystectomy Family History Father Diabetes Hyperlipidemia Hypertension Mother Hypertension Social History Smoking and tobacco/nicotine status: never used tobacco/nicotine Second hand smoke exposure: No Alcohol intake: current Alcohol intake frequency: holidays/special occasions only Alcohol type: beer Adopted: No Caregiver/support person: No Lives independently: Yes Household members: spouse Housing: Manufactured/Mobile home Marital status: Number of children: 2 Highest education level completed: Some College, No Degree service: Yes status: Retired branch: [employer] Course 2 Vital Signs: Vital signs: Vital Signs Temperature 98.4 F 08/17/23 20:01 Pulse Rate 64 08/17/23 23:22 Respiratory Rate 18 08/17/23 23:22 Blood Pressure 125/69 08/17/23 23:22 Pulse Oximetry 94 08/17/23 23:22 Oxygen Delivery Me thod Room Air 08/17/23 20:41 MDM - Chest Pain Medical Decision Making Patient had presented for fatigue and chest pain for the past couple days. States he came in for precautionary purposes as these were symptoms he had with prior heart attack 3 years ago. His initial EKG showed normal sinus rhythm rate [address] segment changes. As per troponin unremarkable, and follow- up troponin did not demonstrate any concerning trends. Basic lab work all unremarkable, blood glucose was understandably elevated due to his history of type 2 diabetes. I did give him some p.o. potassium due to a very mild decrease, though I do not believe this is related to his fatigue. I did scan his abdomen with CT due to history of stomach cancer, though this did not demonstrate any acute findings or reasons for his fatigue. Chest x-ray revealed bibasilar atelectasis versus infiltrate, I also do not believe this is cause for his pain. Urinalysis was normal. I informed him of his essentially negative workup, and informed him to follow-up with his application support consultant this week or next for further outpatient management. He is to continue taking his [id number] famotidine for any potential GERD, as this may likely be a cause for his substernal pain, however also could potentially be musculoskeletal in nature. He is to take the rest of his medications as prescribed and additionally follow-up with primary care to discuss ED visit and any further outpatient management. Reasons to return were thoroughly discussed, and patient understands and is ready for discharge home. Chart reviewed Lab Data 08/17/23 20:15 08/17/23 20:15 Radiology Impressions Chest X-Ray 08/17/23 20:00 IMPRESSION: Bibasilar atelectasis versus minimal infiltrate. Abdomen/Pelvis CT 08/17/23 20:44 IMPRESSION: 1. Urinary bladder wall thickening likely due to nondistention, please correlate for cystitis. 2. Hepatic steatosis. 3. Cholecystectomy. 4. Right kidney lower pole nonobstructing calyceal stone. 5. Left kidney cyst, negative for follow up. 6. Mild perinephric edema bilaterally likely reflecting renal insufficiency, please correlate for pyelonephritis. 7. Diverticulosis without diverticulitis. 8. Probable hyperdense ingested material seen at the gastroesophageal junction. Laboratory Results WBC 5.64 10^3/uL (3.29-11.43) 08/17/23 20:15 RBC 5.33 10^6/uL (3.85-5.65) 08/17/23 20:15 Hgb 17.20 g/dL (11.27-16.99) H 08/17/23 20:15 Hct 50.3 % (37-53) 08/17/23 20:15 MCV 94.4 fl (82-101) 08/17/23 20:15 MCH 32.3 pg (27-33) 08/17/23 20:15 MCHC 34.2 g/dL (30-55) 08/17/23 20:15 RDW 12.9 % (12.1-15.1) 08/17/23 20:15 Plt Count 151 10^3/cmm (157-399) L 08/17/23 20:15 MPV 10.2 fL (7.4-10.4) 08/17/23 20:15 Neut % (Auto) 48.7 % 08/17/23 20:15 Lymph % (Auto) 30.3 % 08/17/23 20:15 [place] % (Auto) 15.4 % 08/17/23 20:15 Eos % (Auto) 4.8 % 08/17/23 20:15 Baso % (Auto) 0.4 % 08/17/23 20:15 Neut # (Auto) 2.75 10^3/uL (1.8-7.7) 08/17/23 20:15 Lymph # (Auto) 1.7 10^3/uL (0.8-4.8) 08/17/23 20:15 [place] # (Auto) 0.9 10^3/uL (0.2-0.9) 08/17/23 20:15 Eos # (Auto) 0.3 10^3/uL (0.0-0.8) 08/17/23 20:15 Baso # (Auto) 0.0 10^3/uL (0.0-0.1) 08/17/23 20:15 Nucleated RBC % (auto) 0 % 08/17/23 20:15 Nucleated RBCs # 0.0 /100WBC 08/17/23 20:15 PT 12.40 SECONDS (12.1-14.9) 08/17/23 20:15 INR 0.90 (0.8-1.2) 08/17/23 20:15 Sodium 139 mmol/L (136-145) 08/17/23 20:15 Potassium 3.3 mmol/L (3.5-5.1) L 08/17/23 20:15 Chloride 102 mmol/L (98-107) 08/17/23 20:15 Carbon Dioxide 24 mmol/L (22-29) 08/17/23 20:15 Anion Gap 16.3 (5-19) 08/17/23 20:15 BUN 17 mg/dL (6-20) 08/17/23 20:15 Creatinine 1.0 mg/dL (0.7-1.2) 08/17/23 20:15 GFR Calculation 76.5 mL/min (90-130) L 08/17/23 20:15 Glucose 236 mg/dL (65-115) H 08/17/23 20:15 Calculated Osmolality 297 mOsm/kg (285-295) H 08/17/23 20:15 Calcium 9.2 mg/dL (8.5-10.5) 08/17/23 20:15 Total Bilirubin 0.5 mg/dL (0.15-1.2) 08/17/23 20:15 AST 29 U/L (0-40) 08/17/23 20:15 ALT 32 U/L (0-41) 08/17/23 20:15 Alkaline Phosphatase 77 U/L (40-130) 08/17/23 20:15 Troponin T Baseline 16 ng/L (0-15) H 08/17/23 20:15 Troponin T 120 Minute 16.62 ng/L (0-15) H 08/17/23 21:54 Delta Troponin T 0.62 ABS# (0-10) 08/17/23 21:54 Total Protein 7.7 g/dL (6.6-8.7) 08/17/23 20:15 Albumin 4.0 g/dL (3.5-5.2) 08/17/23 20:15 Globulin 3.7 g/dL (1.3-4.6) 08/17/23 20:15 Lipase 71 U/L (13-60) H 08/17/23 20:15 Urine Color Yellow (Yellow) 08/17/23 20:53 Urine Appearance Clear (CLEAR) 08/17/23 20:53 Urine pH 5 (5-7) 08/17/23 20:53 Ur Specific [place] 1.010 (1.005-1.030) 08/17/23 20:53 Urine Protein Neg (Negative) 08/17/23 20:53 Urine Glucose (UA) 4+ (Normal) H 08/17/23 20:53 Urine Ketones Negative (Negative) 08/17/23 20:53 Urine Blood Neg (Negative) 08/17/23 20:53 Urine Nitrate Negative (Negative) 08/17/23 20:53 Urine Bilirubin Neg (Negative) 08/17/23 20:53 Urine Urobilinogen Neg mg/dL (Negative) 08/17/23 20:53 Ur Leukocyte Esterase Negative (Negative) 08/17/23 20:53 Discharge Plan Discharge Patient Disposition: Home Clinical Impression: Chest pain Qualifiers: Chest pain type: unspecified Qualified Code(s): R07.9 - Chest pain, unspecified Condition: Stable Prescriptions: No Action (DME) HINGED KNEE BRACE See Rx Instructions .Route .MEDSUPPLY Qty: 1 0RF Rx Instructions: As directed naproxen [Naprosyn] 500 mg tablet 500 mg PO BID 30 Days Qty: 60 0RF naproxen [EC-Naprosyn] 500 mg tablet,delayed release (DR/EC) 500 mg PO Q12H 14 Days Qty: 28 0RF ondansetron HCl 4 mg tablet 4 mg PO Q8H PRN (Reason: nausea and vomiting) 3 Days Qty: 9 0RF carvedilol 12.5 mg tablet 12.5 mg PO BID Qty: 180 1RF Rx Instructions: must administer with a meal/food Farxiga 5 mg tablet 5 mg PO DAILY Qty: 90 1RF escitalopram oxalate 10 mg tablet 10 mg PO DAILY Qty: 90 1RF fenofibrate 160 mg tablet 160 mg PO DAILY Qty: 90 1RF hydrochlorothiazide 25 mg tablet 25 mg PO DAILY Qty: 90 1RF losartan 100 mg tablet 100 mg PO DAILY Qty: 90 1RF magnesium oxide 400 mg (241.3 mg magnesium) tablet 400 mg PO DAILY Qty: 90 1RF metformin 500 mg tablet extended release 24 hr 1,000 mg PO DAILY 90 Days Qty: 180 1RF famotidine 40 mg tablet 40 mg PO BID Qty: 180 1RF Bydureon BCise 2 mg/0.85 mL auto-injector 2 mg SUBCUT Q7D Qty: 10.2 1RF atorvastatin 80 mg tablet 80 mg PO DAILY Qty: 90 1RF amlodipine 10 mg tablet 10 mg PO DAILY Qty: 90 1RF (DME) CPAP auto titrating Machine w/supplies See Rx Instructions .Route .MEDSUPPLY Qty: 1 0RF Rx Instructions: As directed 99 months CPAP auto titrating machine w/supplies 6-20cm fexofenadine [[place]ie Allergy] 60 mg tablet 60 mg PO BID aspirin 81 mg tablet,delayed release (DR/EC) 81 mg PO DAILY One-A-Day Men's Multivitamin 400-20-300 mcg tablet 1 tab PO DAILY thiamine HCl (vitamin B1) 100 mg tablet 50 mg PO DAILY Zyrtec 10 mg capsule 10 mg PO DAILY PRN (Reason: Allergy Symptoms) cinnamon bark [Cinnamon] 500 mg capsule 500 mg PO DAILY ticagrelor 60 mg tablet 90 mg PO BID Qty: 270 1RF Hold Instructions: Resume on 01/18/22. Discharge Orders: Discharge ED (Routine); Ordered 08/17/23 Ordered By: Valerio Dubose Referrals: Antonia Allen FNP-C [Primary Care Provider] - Discharge Diet: Usual diet Discharge Activity: Increase activity as tolerated Patient Instructions: Chest Pain (ED) Activity Restrictions/Additional Instructions: Continue taking your home medications as normal. Follow-up with cardiology this week as discussed. Please return with any new or worsening symptoms you may have. Coding Level of Care Code ED Oxygen Equipment Preparer for Angel Garza
[2023-08-17 20:39] LABS: Troponin(5th) Baseline 16 ng/L (0-15)
[2023-08-17 20:40] LABS: Alanine Aminotransferase 32 U/L (0-41); Alkaline Phosphatase 77 U/L (40-130); Anion Gap 16.3 (5-19); Aspartate Amino Transferase 29 U/L (0-40); Blood Urea Nitrogen 17 mg/dL (6-20); Calcium 9.2 mg/dL (8.5-10.5); Carbon Dioxide 24 mmol/L (22-29); Chloride 102 mmol/L (98-107); Creatinine Clr Calc Pharmacy 114.3509; Globulin 3.7 g/dL (1.3-4.6); Glomerular Filtration Rate 76.5 mL/min (90-130); Glucose 236 mg/dL (65-115); Lipase 71 U/L (13-60); Osmolality Calculated 297 mOsm/kg (285-295); Potassium 3.3 mmol/L (3.5-5.1); Sodium 139 mmol/L (136-145); Total Bilirubin 0.5 mg/dL (0.15-1.2); Total Protein 7.7 g/dL (6.6-8.7)
[2023-08-17 20:41] VITALS: BP 124/76; PULSE 66; RESP 17; O2SAT 93
--- NOTE | 2023-08-17 20:44 | CTR_ITS ---
PROCEDURE INFORMATION: Exam: CT Abdomen And Pelvis With Contrast Exam date and time: 08/17/2023 9:04 PM Age: 58 years old Clinical indication: Abdominal pain; Epigastric; Additional info: Epigastric pain/hx of stomach cancer TECHNIQUE: Imaging protocol: Computed tomography of the abdomen and pelvis with contrast. Radiation optimization: All CT scans at this facility use at least one of these dose optimization techniques: automated exposure control; mA and/or kV adjustment per patient size (includes targeted exams where dose is matched to clinical indication); or iterative reconstruction. Contrast material: OMNI 350; Contrast volume: 100 ml; Contrast route: INTRAVENOUS (IV); COMPARISON: CR (CHEST, ) 08/17/2023 8:14 PM RADIATION DOSE METRICS: Total DLP (mGy-cm): 1188 FINDINGS: Liver: Hepatic steatosis. Gallbladder and bile ducts: Cholecystectomy. Pancreas: Normal. No ductal dilation. Spleen: Normal. No splenomegaly. Adrenal glands: Normal. No mass. Kidneys and ureters: Right kidney lower pole nonobstructing calyceal stone. Left kidney cyst, negative for follow up. Mild perinephric edema bilaterally likely reflecting renal insufficiency, please correlate for pyelonephritis. Stomach and bowel: Diverticulosis without diverticulitis. Probable hyperdense ingested material seen at the gastroesophageal junction. Appendix: No evidence of appendicitis. Intraperitoneal space: Unremarkable. No free air. No significant fluid collection. Vasculature: Unremarkable. No abdominal aortic aneurysm. Lymph nodes: Unremarkable. No enlarged lymph nodes. Urinary bladder: Urinary bladder wall thickening likely due to nondistention, please correlate for cystitis. Reproductive: Unremarkable as visualized. Bones/joints: Unremarkable. No acute fracture. Soft tissues: Unremarkable. CT/CT abdomen pelvis w con* [id number] IMPRESSION: 1. Urinary bladder wall thickening likely due to nondistention, please correlate for cystitis. 2. Hepatic steatosis. 3. Cholecystectomy. 4. Right kidney lower pole nonobstructing calyceal stone. 5. Left kidney cyst, negative for follow up. 6. Mild perinephric edema bilaterally likely reflecting renal insufficiency, please correlate for pyelonephritis. 7. Diverticulosis without diverticulitis. 8. Probable hyperdense ingested material seen at the gastroesophageal junction.
[2023-08-17 21:00] LABS: Add Urine Microscopic? NO; Charge for UA Resulting for Rev
[2023-08-17] MEDS: potassium chloride ER 20 mEq Tablet 40 MEQ PO (21:01)
[2023-08-17] MEDS: sodium chloride 0.9% 1,000 ML 999 ML IV (21:02)
[2023-08-17] MEDS: iohexol 350 mg/mL 500 mL Btl (per mL) IV (21:08)
[2023-08-17 21:10] LABS: Bilirubin Urine Neg (Negative); Blood Urine Neg (Negative); Glucose Urine UA 4+ (Normal); Ketones Urine Negative (Negative); Leukocyte Esterase Urine Negative (Negative); Nitrate Urine Negative (Negative); Protein Urine Neg (Negative); Urine Appearance Clear (CLEAR); Urine Color Yellow (Yellow); Urobilinogen Urine Neg (Negative); pH Urine 5 (5-7)
--- NOTE | 2023-08-17 22:00 | ECG_ITS ---
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 Measurements Intervals [place] Rate: 59 P: 35 CA: 152 QRS: 37 QRSD: 94 T: -47 QT: 412 QTc: 409 Interpretive Statements SINUS BRADYCARDIA MODERATE T-WAVE ABNORMALITY, CONSIDER LATERAL ISCHEMIA [-0.1+ mV T-WAVE IN I/aVL/V5/V6] MODERATE T-WAVE ABNORMALITY, CONSIDER INFERIOR ISCHEMIA [-0.1+ mV T-WAVE IN II/aVF] Compared to ECG 07/28/2023 15:08:12 Possible ischemia now present Sinus rhythm no longer present T-wave abnormality still present Electronically Signed On 08-18-2023 16:53:18 CDT by Jose Muir M.D. [id number]
[2023-08-17 22:11] VITALS: BP 137/80; PULSE 63; RESP 24; O2SAT 94
[2023-08-17 22:21] LABS: Troponin 5 2HR 16.62 ng/L (0-15); Troponin 5 2HR Delta 0.62 ABS# (0-10)
[2023-08-17 23:22] VITALS: BP 125/69; PULSE 64; RESP 18; O2SAT 94
== END 2023-08-17 23:23 | disposition home or self-care (01) ==
PROVIDERS: Emergency Medicine; Emergency Provider Physician Assistant; PCP Nurse Practitioner Family
DX: R07.9 Chest pain, unspecified (principal); Z79.82 Long term (current) use of aspirin; Z79.84 Long term (current) use of oral hypoglycemic drugs; I25.10 Atherosclerotic heart disease of native coronary artery without angina pectoris; Z85.028 Personal history of other malignant neoplasm of stomach; E78.5 Hyperlipidemia, unspecified; I10 Essential (primary) hypertension; E11.9 Type 2 diabetes mellitus without complications
CPT/HCPCS: 71045; 74177; 80053; 81003; 83690; 84484; 85025; 85610; 93005; 96360; 99285; J7030; Q9967

== ENCOUNTER → 2023-08-19 09:03 | Outpatient (BNVA) | payer BC, SELFPAY | PROVIDERS: PCP Nurse Practitioner Family; Visit Provider Nurse Practitioner Family | DX: R07.9 Chest pain, unspecified (principal) | CPT/HCPCS: 80053; 84484; 85025 ==

== ENCOUNTER 2023-11-12 20:00 | Outpatient (CLI) | payer BC, SELFPAY | END 2023-11-12 20:01 | disposition home or self-care (01) | LOC: SLEEP 22:52 | PROVIDERS: PCP Nurse Practitioner Family; Visit Provider Nurse Practitioner Family | DX: G47.33 Obstructive sleep apnea (adult) (pediatric) (principal) | CPT/HCPCS: 95810 ==

== ENCOUNTER → 2024-02-11 14:04 | Outpatient (BNVA) | payer BC, SELFPAY | PROVIDERS: PCP Nurse Practitioner Family; Visit Provider Nurse Practitioner Family | DX: I10 Essential (primary) hypertension (principal); E11.9 Type 2 diabetes mellitus without complications; E78.49 Other hyperlipidemia | CPT/HCPCS: 80053; 80061; 83036; 84443; 85025; G0103 ==

== ENCOUNTER 2024-02-25 08:30 | Outpatient (CLI) | payer BC, SELFPAY ==
--- NOTE | 2024-02-25 08:45 | USCV_ITS ---
Ho Lee Age: 58 Gender: M : 1965 Exam Date: 02/25/2024 08:53 Ordering Phys: Delbert Culp MD ([email or web address]) Technologist: CT [place] [facility] [place]: BP: 135 / 89 HR: 57 Rhythm: Sinus Technical Quality: Adequate MEASUREMENTS (Male / Female) Normal Values 2D ECHO LVOT Diameter 2.3 cm LV Ejection Fraction MOD 4C 70.4 % LV Ejection Fraction MOD 2C 57.1 % LV Ejection Fraction 2C AL 57.8 % LA Diameter 5.3 cm RA Systolic Volume 4C AL 64.1 ml RA Systolic Volume 4C MOD 64.3 ml LA Sys Volume AL 77.1 cm cubed LA Sys Volume Index AL 28.0 cm cubed/m squared Aorta at Sinotubular Diameter 2.7 cm M-MODE LA Ao Ratio MM 1.8 AV Cusp Separation MM 1.6 cm DOPPLER AV Peak Velocity 241.3 cm/s LVOT Peak Velocity 153.0 cm/s AV Area Cont Eq vti 2.7 cm squared AV Area Cont Eq pk 2.7 cm squared MV Peak Velocity 109.0 cm/s MV Area PHT 2.6 cm squared Mitral E to A Ratio 0.9 TR Peak Velocity 172.0 cm/s TR Peak Gradient 11.8 mmHg TV Peak E Velocity 63.0 cm/s PV Peak Velocity 114.0 cm/s FINDINGS Left Ventricle Normal left ventricular size and systolic function, EF 65%.no regional wall motion abnormalities. Mild left ventricular hypertrophy. Grade I/IV diastolic dysfunction (abnormal relaxation filling pattern), normal to mildly elevated filling pressures. Right Ventricle The right ventricle is normal in size and function. Right Atrium The right atrium is normal in size. Left Atrium Mildly increased left atrial size. Mitral Valve No gross abnormalities noted Aortic Valve Aortic valve sclerosis. Peak velocity of 2.4 m/s Tricuspid Valve No gross abnormalities noted Pulmonic Valve Pulmonic valve not well visualized. Pericardium Normal pericardium without effusion. Aorta Normal ascending aorta dimension. IVC The inferior vena cava appears normal. CONCLUSIONS Normal left ventricular size and systolic function, EF 65%.no regional wall motion abnormalities. Mild left ventricular hypertrophy. Grade I/IV diastolic dysfunction (abnormal relaxation filling pattern), normal to mildly elevated filling pressures. Mildly increased left atrial size. Aortic valve sclerosis. Peak velocity of 2.4 m/s. There is no pericardial effusion. Pulmonary artery systolic pressure is within normal limits. No similar previous studies are available for comparison Dr Delbert Culp MD [facility] (Electronically Signed) Final Date: 05 March 2024 16:11 S
== END 2024-02-25 08:31 | disposition home or self-care (01) ==
LOC: RAD 08:30
PROVIDERS: PCP Nurse Practitioner Family; Visit Provider Internal Medicine Cardiovascular Disease
DX: I50.30 Unspecified diastolic (congestive) heart failure (principal); I70.0 Atherosclerosis of aorta; R06.09 Other forms of dyspnea
CPT/HCPCS: 93306

== ENCOUNTER 2024-02-25 15:48 | Outpatient (CLI) | payer BC, SELFPAY ==
[2024-02-25] MEDS: iohexol 350 mg/mL 500 mL Btl (per mL) PO (16:08)
--- NOTE | 2024-02-25 17:00 | CT_ITS ---
WS: [id number] CT ABDOMEN AND PELVIS WITH CONTRAST HISTORY: K46.9 - Unspecified abdominal hernia without obstruction ... TECHNIQUE: Imaging performed of the abdomen and pelvis with IV contrast. Single phase imaging of the abdomen. Coronal and sagittal reformats are submitted. All CT scans at [facility] use at chance st one of these dose optimization techniques: automated exposure control; mA and/or kV adjustment per patient size (includes targeted exams where dose is matched to clinical indication); or iterative re construction. IV CONTRAST: Omnipaque 350; 100 mL IV. Oral contrast: Yes. DLP: 1279.30 mGy.cm COMPARISON: 08/17/2023 Lower thorax: Lung bases are clear. Mild cardiomegaly. Small hiatal hernia. Liver/biliary system: Mild hepatic steatosis. Normal portal vein. There is also slightly enlarged. No mass. No intrahepatic bile duct dilatation. Gallbladder: Status post cholecystectomy. Pancreas: Normal size pancreas and pancreatic duct. No adjacent inflammation. Spleen: Normal size spleen. No mass or infarct. Adrenal glands: Normal. Right kidney: Normal size kidney. Nonobstructing 3 mm calcification in the lower pole. Tiny cortical cyst in the medial kidney measures 0.8 cm. No solid mass or obstruction. Left kidney: No obstruction. Normal size kidney. Mild perinephric stranding. Wedge-shaped area of dec reased attenuation in the central kidney was present on the prior study. Hounsfield units of low cons istent with a cyst. Aorta: Mild atherosclerosis with no aneurysm. Lymphadenopathy: None. Free fluid: None. GI tract: Stomach is well distended. There is a single surgical clip noted in the greater curvature o f the stomach which was also present on the prior study. No small bowel obstruction. No enteritis. No appendicitis. Beginning in the descending colon there are scattered diverticula without acute divert iculitis. Abdominal wall: Separation of the rectus abdominal muscles. The linea alba is intact. No focal hernia is identified. Pelvis: Urinary bladder is well distended. No adenopathy or free fluid. Bones: No destructive bone lesions. Mild degenerative changes in the lumbar spine. CT/CT abdomen pelvis w con* [id number] IMPRESSION: 1. No ventral abdominal wall hernia or mass. 2. Diastases recti. Increased distance between the medial sides of the rectus abdominis muscles. Gap is approximately 8.2 cm. 3. Mild sigmoid diverticulosis without acute diverticulitis. 4. No adenopathy or ascites. 5. Mild perinephric stranding around each kidney with a few small scattered co rtical hypodensities. Similar to 08/17/2023. 6. Mild hepatomegaly and hepatic steatosis. 7. Prior cholecystectomy.
[2024-02-25] MEDS: iohexol 350 mg/mL 500 mL Btl (per mL) IV (17:18)
== END 2024-02-25 15:49 | disposition home or self-care (01) ==
LOC: RAD 15:48
PROVIDERS: PCP Nurse Practitioner Family; Visit Provider Nurse Practitioner Family
DX: K44.9 Diaphragmatic hernia without obstruction or gangrene (principal); Z85.038 Personal history of other malignant neoplasm of large intestine; K21.9 Gastro-esophageal reflux disease without esophagitis; M62.08 Separation of muscle (nontraumatic), other site; N20.0 Calculus of kidney; N28.1 Cyst of kidney, acquired; Z90.49 Acquired absence of other specified parts of digestive tract
CPT/HCPCS: 74177

== ENCOUNTER 2024-03-04 07:48 | Outpatient (CLI) | payer BC, SELFPAY ==
[2024-03-04 08:05] VITALS: BMI 39.5
--- NOTE | 2024-03-04 08:09 | NMCV_ITS ---
NM derek perf SPECT r/s* [id number] Ho Lee Age: 59 Gender: M : 1965 Exam Date: 03/04/2024 09:07 Ordering Phys: Delbert Culp MD ([email or web address]) Technologist: JIMMIE Ayala Exam Location: [facility] Indications: cp STRESS TEST Please see separate stress test report in [facility] for full findings IMAGE PROTOCOL Rest/Stress 1 Exercise Day Radiopharmaceutical Dose (mCi) Administration Site Administered by Rest: Tc-99m 10.9 IV Johanne Beatty, RESIDENTIAL PROGRAM MANAGER Sestamibi Stress:Tc-99m 32.7 IV JIMMIE Ayala Sestamibi Rest: 04-Mar-2024 60 Discovery 630 Stress: 04-Mar-2024 15 Discovery 630 0.4mg Lexiscan. Radiopharmaceutical was injected at 87 % maximum heart rate. Images obtained in supine and prone position. SPECT RESULTS Technical Quality: Good Raw Data Analysis: Normal Image Corrections: No attenuation or motion correction applied Summed Stress Score: 1 Summed Rest Score: 1 Summed Difference Score: 1 PERFUSION FINDINGS A small area of slightly decreased tracer uptake was noted in the apical mid inferior darling region with some reversibility, with respect to the supine imaging. However with respect to the prone imaging there is no significant reversibility noted. FUNCTIONAL RESULTS (calculated via Gated SPECT) Stress Image LV EF (%): 80 Stress EDV (mL):116 TID: 0.85 Stress ESV (mL):23 FUNCTIONAL FINDINGS: Segmental wall motion analysis revealing no gross wall motion abnormalities IMPRESSIONS 1. Myocardial perfusion imaging revealing small area of inconsistent reversible defect in the mid inferior wall region, most likely is artifactual. 2. Normal LV ejection fraction of 80%. 3. LV wall motion analysis revealing no gross wall motion abnormalities. 4. Normal LV volume Probably no significant coronary ischemia, based on the above findings No similar previous studies are available for comparison Dr Delbert Culp MD [facility] (Electronically Signed) Final Date: 04 March 2024 11:54 S
--- NOTE | 2024-03-04 08:09 | ECG_ITS ---
[facility] Test Date: 2024-03-04 Pat Name: Ho Lee Department: Room: Gender: Male Metrologist: : 1965 Requested By: Delbert Culp Order Number: [id number] Clarke MD: Delbert Culp M.D. Interpretive Statements Lung unchanged pre/post procedure; Intraprocedure shortess of breath; Symptoms resoled by discharge PROCEDURE: The baseline electrocardiogram showed normal sinus rhythm with normal ST-Ts. At the baseline, the patient's blood pressure was 140/86mm Hg with a heart rate of 82/min.. The patient exercised for on a standard Sergio protocol. Patient attained a maximum heart rate of 151 beats per minute (94 % of the maximum predicted heart rate) with a blood pressure at the peak exercise of 209/100 mm Hg. The EKG at the peak exercise revealed [address] depressions in leads II, 3, aVF, V3-V6. Patient did not have any chest pain or any significant arrhythmis with the exercise Sestamibi was injected 1 minute prior to the peak exercise During the recovery phase, there were no new changes. Blood pressure at the end of the recovery phase was 164/87 mm Hg with a heart rate of 83 per minute. CONCLUSION: 1. Abnormal EKG response to treadmill exercise treadmill exercise suggesting ischemia in distribution of the left anterior descending artery/right coronary artery 2. No exercise-induced chest pain or cardiac arrhythmia 3. Fair exercise tolerance, attained a maximum of 10.2 METs 4. Sestamibi/Sestamibi perfusion results pending; see separate report. Electronically Signed On 03-11-2024 14:31:17 SOFTWARE CONFIGURATION ENGINEER by Delbert Culp M.D. [email or web address]
[2024-03-04 10:31] VITALS: BP 164/87; PULSE 84
== END 2024-03-04 07:49 | disposition home or self-care (01) ==
LOC: CDL 07:48
PROVIDERS: PCP Nurse Practitioner Family; Visit Provider Internal Medicine Cardiovascular Disease
DX: Z98.61 Coronary angioplasty status (principal); R94.39 Abnormal result of other cardiovascular function study
CPT/HCPCS: 36415; 78452; 93017; A9500

== ENCOUNTER 2024-04-06 07:44 | Day surgery (SDC) | payer BC, SELFPAY ==
[2024-04-06 08:00] VITALS: BP 150/102; PULSE 86; RESP 18; TEMP 36.6; O2SAT 96; BMI 39.5
[2024-04-06] MEDS: sodium chloride 0.9% 500 ML 15 ML IV (08:22)
[2024-04-06 08:23] LABS: Glucose Point of Care 318 mg/dL (70-110)
--- NOTE | 2024-04-06 08:33 | ANES.PREANE2 ---
Pre-Anesthetic Assessment Height/Weight: Height 1.85 m Weight 136.078 kg Temp Pulse Resp BP Pulse Ox O2 Del Method 97.8 F 86 18 150/102 96 Room Air 04/06/24 08:00 04/06/24 08:00 04/06/24 08:00 04/06/24 08:00 04/06/24 08:00 04/06/24 08:00 Preop Diagnosis: screening Operation Date: 04/06/24 09:00 Proposed Procedures p Colonoscopy - 16138, 88799, Z86.0100, K21.9, G0105(Not Applicable) - Tay Hill DO s EGD(Not Applicable) - Tay Hill DO Familial anesthetic complications: none Was Beta Holli taken within 24 hours: Yes Was Clonidine taken within 24 hours: N/A Last intake: Intake Last Liquid Date 04/05/24 Last Liquid Time 20:00 Last Solid Date 04/04/24 Last Solid Time 19:30 Social No alcohol and No tobacco Smokes [facility] daily Exam alert, oriented x 3, clear to auscultation bilaterally and regular rate & rhythm Airway Submandibular: within normal limits Cervical ROM: within normal limits Mallampati: Class II Dentition: full History/ROS No significant history except as noted and No significant complaints Pulmonary Exertional Dyspnea and Sleep Apnea CPAP CV/HEM Coronary Artery Disease, Hypertension and Myocardial Infarction 2 stents 2020 None reported Hepatic None reported GI Gastroesophageal Reflux Disease Metabolic Diabetes Mellitus and Morbid Obesity BS 318 Ordered 10 units regular insulin pre-op. [place]he[place] [facility] [place] reported Neuropsych None reported Anesthetic Plan ASA status: 3 Anesthesia: MAC Risk of > 500 ml blood loss (7ml/kg in children): No Medications/Allergies Home Medications Medication Instructions Recorded Confirmed Last Taken Type aspirin 81 mg tablet,delayed 81 mg PO QAM 09/02/21 04/04/24 03/30/24 History release cetirizine 10 mg capsule (Zyrtec) 10 mg PO QPM PRN Allergy Symptoms 09/02/21 04/04/24 03/30/24 History cinnamon bark 500 mg capsule 500 mg PO QPM 09/02/21 04/04/24 03/30/24 History (Cinnamon) fexofenadine 60 mg tablet (Tootie 60 mg PO QAM 09/02/21 04/04/24 03/30/24 History Allergy) mjbhcikh-bixurodx-bulgh acid 400 1 tab PO QAM 09/02/21 04/04/24 03/30/24 History mcg-vit K 20 mcg-lycop 300 mcg tablet (One-A-Day Men's Multivitamin) HINGED KNEE BRACE #1 ea 03/11/22 02/22/24 Unknown Rx CPAP auto titrating Machine #1 ea 10/01/23 02/22/24 Unknown Rx w/supplies auto titration CPAP and supplies #1 ea 12/15/23 02/22/24 Unknown Rx for TJ vitamin B complex 1 tab PO QAM 01/28/24 04/04/24 03/30/24 History carvedilol 12.5 mg tablet 12.5 mg PO BID #90 tabs 02/11/24 04/06/24 04/06/24 Rx exenatide microspheres 2 mg/0.85 2 mg (0.85 mL) SUBCUT Q7D #10.2 mL 02/11/24 04/04/24 03/26/24 Rx mL subcutaneous auto-injector (Bybarrie Peters) nitroglycerin 0.4 mg sublingual 0.4 mg sublingual Q5M PRN chest 02/11/24 04/04/24 Unknown Rx tablet (Nitrostat) pain #30 tabs pantoprazole 40 mg tablet,delayed 40 mg PO BID 6 weeks #84 tabs 02/22/24 04/04/24 03/30/24 Rx release (Protonix) CoQ-10 1 tab PO DAILY 02/29/24 04/04/24 03/30/24 History amlodipine 10 mg tablet 10 mg PO QPM 02/29/24 04/06/24 04/06/24 History atorvastatin 80 mg tablet 80 mg PO QPM 02/29/24 04/04/24 03/30/24 History escitalopram oxalate 10 mg tablet 10 mg PO QAM 02/29/24 04/04/24 03/30/24 History (Lexapro) fenofibrate 160 mg tablet 160 mg PO QAM 02/29/24 04/04/24 03/30/24 History hydrochlorothiazide 25 mg tablet 25 mg PO QAM 02/29/24 04/04/24 04/06/24 History losartan 100 mg tablet 100 mg PO QAM 02/29/24 04/04/24 03/30/24 History magnesium oxide 400 mg (241.3 mg 400 mg PO QPM 02/29/24 04/04/24 03/30/24 History magnesium) tablet metformin 500 mg tablet,extended 1,000 mg PO QPM 02/29/24 04/04/24 03/30/24 History release 24 hr ticagrelor 60 mg tablet (Brilinta) 90 mg PO BID 02/29/24 04/04/24 03/30/24 History Allergies Allergy/AdvReac Type Severity Reaction Status Date / Time blue dye Allergy ALGY-Hives Verified 04/06/24 08:15 Penicillins Allergy hives Verified 04/06/24 08:15 Current Medications Generic Name Dose Route Start Last Admin Trade Name Freq PRN Reason Stop Dose Admin Sodium Chloride 500 mls @ 15 mls/hr 04/06/24 07:53 04/06/24 08:22 Sodium Chloride 0.9% IV 04/07/24 07:52 15 mls/hr .Q24H PRN Administration COLONOSCOPY FLUIDS PFSH Anesthesia Medical History (Updated 02/22/24 @ 09:11 by Tay Hill DO) History of colon polyps Celiac disease Obstructive sleep apnea CAD (coronary artery disease) History of stomach cancer Environmental and seasonal allergies Hyperlipidemia Essential hypertension GERD (gastroesophageal reflux disease) Type 2 diabetes mellitus Surgical History History of heart artery stent Hx of cholecystectomy Family History Father Diabetes Hyperlipidemia Hypertension Mother Hypertension Social History Smoking and tobacco/nicotine status: never used tobacco/nicotine Second hand smoke exposure: No Alcohol intake: current Alcohol intake frequency: holidays/special occasions only Alcohol type: beer Adopted: No Caregiver/support person: No Lives independently: Yes Household members: spouse Housing: Manufactured/Mobile home Marital status: Number of children: 2 Highest education level completed: Some College, No Degree service: Yes status: Retired branch: [employer] Data Anesthesia Cardiac Studies: Echocardiogram 02/25/24 Sestamibi Stress Test (Cardiology) 03/04/24
[2024-04-06] MEDS: insulin regular-human 100 units/1 mL 10 UNIT IVP (08:46)
--- NOTE | 2024-04-06 09:46 | PM.HP ---
Providers/Chief Complaint Primary Care Provider: JULIANNE Arce History of Present Illness Ho Lee is a 59 year old male Review of Systems General: Reports: 10 or more systems reviewed and unremarkable except in HPI and below Medications/Allergies Home Medications Medication Instructions Recorded Confirmed Last Taken Type aspirin 81 mg tablet,delayed 81 mg PO QAM 09/02/21 04/04/24 03/30/24 History release cetirizine 10 mg capsule (Zyrtec) 10 mg PO QPM PRN Allergy Symptoms 09/02/21 04/04/24 03/30/24 History cinnamon bark 500 mg capsule 500 mg PO QPM 09/02/21 04/04/24 03/30/24 History (Cinnamon) fexofenadine 60 mg tablet (Tootie 60 mg PO QAM 09/02/21 04/04/24 03/30/24 History Allergy) zfwlejcl-lepnvgue-dmnba acid 400 1 tab PO QAM 09/02/21 04/04/24 03/30/24 History mcg-vit K 20 mcg-lycop 300 mcg tablet (One-A-Day Men's Multivitamin) HINGED KNEE BRACE #1 ea 03/11/22 02/22/24 Unknown Rx CPAP auto titrating Machine #1 ea 10/01/23 02/22/24 Unknown Rx w/supplies auto titration CPAP and supplies #1 ea 12/15/23 02/22/24 Unknown Rx for TJ vitamin B complex 1 tab PO QAM 01/28/24 04/04/24 03/30/24 History carvedilol 12.5 mg tablet 12.5 mg PO BID #90 tabs 02/11/24 04/06/24 04/06/24 Rx exenatide microspheres 2 mg/0.85 2 mg (0.85 mL) SUBCUT Q7D #10.2 mL 02/11/24 04/04/24 03/26/24 Rx mL subcutaneous auto-injector (Bybarrie Peters) nitroglycerin 0.4 mg sublingual 0.4 mg sublingual Q5M PRN chest 02/11/24 04/04/24 Unknown Rx tablet (Nitrostat) pain #30 tabs pantoprazole 40 mg tablet,delayed 40 mg PO BID 6 weeks #84 tabs 02/22/24 04/04/24 03/30/24 Rx release (Protonix) CoQ-10 1 tab PO DAILY 02/29/24 04/04/24 03/30/24 History amlodipine 10 mg tablet 10 mg PO QPM 02/29/24 04/06/24 04/06/24 History atorvastatin 80 mg tablet 80 mg PO QPM 02/29/24 04/04/24 03/30/24 History escitalopram oxalate 10 mg tablet 10 mg PO QAM 02/29/24 04/04/24 03/30/24 History (Lexapro) fenofibrate 160 mg tablet 160 mg PO QAM 02/29/24 04/04/24 03/30/24 History hydrochlorothiazide 25 mg tablet 25 mg PO QAM 02/29/24 04/04/24 04/06/24 History losartan 100 mg tablet 100 mg PO QAM 02/29/24 04/04/24 03/30/24 History magnesium oxide 400 mg (241.3 mg 400 mg PO QPM 02/29/24 04/04/24 03/30/24 History magnesium) tablet metformin 500 mg tablet,extended 1,000 mg PO QPM 02/29/24 04/04/24 03/30/24 History release 24 hr ticagrelor 60 mg tablet (Brilinta) 90 mg PO BID 02/29/24 04/04/24 03/30/24 History Allergies Allergy/AdvReac Type Severity Reaction Status Date / Time blue dye Allergy ALGY-Hives Verified 04/06/24 08:15 Penicillins Allergy hives Verified 04/06/24 08:15 PFSH Acute PFSH: Medical History (Updated 02/22/24 @ 09:11 by Tay Hill DO) History of colon polyps Celiac disease Obstructive sleep apnea CAD (coronary artery disease) History of stomach cancer Environmental and seasonal allergies Hyperlipidemia Essential hypertension GERD (gastroesophageal reflux disease) Type 2 diabetes mellitus Surgical History History of heart artery stent Hx of cholecystectomy Family History Father Diabetes Hyperlipidemia Hypertension Mother Hypertension Social History Smoking and tobacco/nicotine status: never used tobacco/nicotine Second hand smoke exposure: No Alcohol intake: current Alcohol intake frequency: holidays/special occasions only Alcohol type: beer Adopted: No Caregiver/support person: No Lives independently: Yes Household members: spouse Housing: Manufactured/Mobile home Marital status: Number of children: 2 Highest education level completed: Some College, No Degree service: Yes status: Retired branch: [employer] Vitals/I&O/Wt Last Vital Signs Temp 97.8 F 04/06/24 08:00 Pulse 86 04/06/24 08:00 Resp 18 04/06/24 08:00 BP 150/102 04/06/24 08:00 Pulse Ox 96 04/06/24 08:00 O2 Del Method Room Air 04/06/24 08:00 Weight last 48 hrs Weight 300 lb A&P Assessment and plan (1) GERD (gastroesophageal reflux disease): (2) History of stomach cancer: (3) History of colon polyps: Plan EGD and colonoscopy Attestations Medical Necessity Statement*: Home Coding Level of Care Code Acute Code for Chg Fwd Diagnoses GERD (gastroesophageal reflux disease) K21.9 History of stomach cancer Z85.028 History of colon polyps Z86.0100
[2024-04-06 10:17] VITALS: BP 113/69; PULSE 70; RESP 18; TEMP 36.2; O2SAT 90
[2024-04-06 10:26] VITALS: BP 140/71; PULSE 76; RESP 16; O2SAT 92
[2024-04-06 10:28] LABS: Glucose Point of Care 250 mg/dL (70-110)
--- NOTE | 2024-04-06 10:42 | ANE.PACU2 ---
Inpatient post-anesthesia follow up: Airway intact: Yes Vital signs: Temperature 97.2 F Pulse Rate 76 Respiratory Rate 16 Blood Pressure 140/71 Pulse Oximetry 92 Oxygen Delivery Me thod Room Air Oxygen Flow Rate Fraction of Inspir ed Oxygen Hydration adequate: Yes Nausea and vomiting: No Pain level: 1 Mental status: Baseline
== END 2024-04-06 10:42 | disposition home or self-care (01) ==
PROVIDERS: PCP Nurse Practitioner Family; Visit Provider Surgery
PROC: 0DJD8ZZ Inspection of Lower Intestinal Tract, Via Natural or Artificial Opening Endoscopic (ICD-10-PCS; CPT 45378; principal; 2024-04-06 09:00)
PROC: 0DJ08ZZ Inspection of Upper Intestinal Tract, Via Natural or Artificial Opening Endoscopic (ICD-10-PCS; 2024-04-06 09:00)
DX: Z12.11 Encounter for screening for malignant neoplasm of colon (principal); Z86.0100 Personal history of colon polyps, unspecified; K21.9 Gastro-esophageal reflux disease without esophagitis; G47.33 Obstructive sleep apnea (adult) (pediatric); Z99.89 Dependence on other enabling machines and devices; I25.10 Atherosclerotic heart disease of native coronary artery without angina pectoris; I10 Essential (primary) hypertension; I25.2 Old myocardial infarction; Z95.5 Presence of coronary angioplasty implant and graft; E11.9 Type 2 diabetes mellitus without complications; E66.01 Morbid (severe) obesity due to excess calories; Z68.39 Body mass index [BMI] 39.0-39.9, adult; Z79.4 Long term (current) use of insulin; Z79.82 Long term (current) use of aspirin
CPT/HCPCS: 36416; 43239; 45378; 82962; 88305; J1815; J2704; J7040

== ENCOUNTER 2024-08-03 12:14 | Emergency (ER) | payer BC, SELFPAY ==
[2024-08-03 12:16] VITALS: BP 128/80; PULSE 63; RESP 16; TEMP 36.6; O2SAT 97; BMI 38.9
--- NOTE | 2024-08-03 12:23 | ECG_ITS ---
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
[2024-08-03 12:30] LABS: Basophils % 0.6 %; Eosinophils # 0.4 10^3/uL (0.0-0.8); Eosinophils % 6.6 %; Hematocrit 49.9 % (37-53); Lymphocytes # 1.9 10^3/uL (0.8-4.8); Lymphocytes % 30.2 %; Mean Corpuscular HGB Conc 33.7 g/dL (30-55); Mean Corpuscular Hemoglobin 32.8 pg (27-33); Mean Corpuscular Volume 97.5 fl (82-101); Monocytes # 0.5 10^3/uL (0.2-0.9); Monocytes % 7.6 %; Neutrophils # 3.43 10^3/uL (1.8-7.7); Neutrophils % 54.4 %; Nucleated Red Blood Cells % 0 %; Platelet Count 129 10^3/cmm (157-399); Red Blood Count 5.12 10^6/uL (3.85-5.65); Red Cell Distribution Width 12.8 % (12.1-15.1); White Blood Count 6.32 10^3/uL (3.29-11.43)
[2024-08-03 12:44] LABS: Alanine Aminotransferase 37 U/L (0-41); Albumin Level 4.3 g/dL (3.5-5.2); Alkaline Phosphatase 66 U/L (40-130); Anion Gap 17.1 (5-19); Aspartate Amino Transferase 33 U/L (0-40); Blood Urea Nitrogen 19 mg/dL (8-23); Calcium 9.5 mg/dL (8.5-10.5); Carbon Dioxide 24 mmol/L (22-29); Chloride 102 mmol/L (98-107); Creatinine Clr Calc Pharmacy 102.4889; Globulin 3.2 g/dL (1.3-4.6); Glomerular Filtration Rate 68.3 mL/min (90-130); Glucose 314 mg/dL (65-115); Lipase 57 U/L (13-60); Osmolality Calculated 302 mOsm/kg (285-295); Potassium 4.1 mmol/L (3.5-5.1); Sodium 139 mmol/L (136-145); Total Bilirubin 0.7 mg/dL (0.15-1.2); Total Protein 7.5 g/dL (6.6-8.7)
--- NOTE | 2024-08-03 13:13 | XR_ITS ---
WS: [id number] Exam: XR ribs LT mn 3V w CXR1V [id number] Date/Time of Exam: 08/03/2024 1:30 PM Reason For Exam: Pain No acute LEFT rib fracture or pneumothorax. No pleural or pulmonary reactive changes identified. Both lungs are clear and well ventilated. Unremarkable cardiomediastinal silhouette for portable technique. XR/XR ribs LT mn 3V w CXR1V [id number] IMPRESSION: 1. Negative LEFT rib study. No acute cardiopulmonary process identified.
[2024-08-03] MEDS: ketorolac 60 mg/2 mL INJ IM (13:39)
--- NOTE | 2024-08-03 14:37 | W.ED.GENADLT ---
HPI - General Adult General: Chief complaint: Abdominal Pain Stated complaint: pain left abdomin Time Seen by Provider: 08/03/24 12:36 History of Present Illness: This patient is a 59-year-old white male who presents to the emergency department complaining of left rib cage tenderness. Patient states this comes and goes. It lasts about 30 seconds to 1 minute at a time. Feels sharp and crampy. No coughing. No fever. No nausea or vomiting. No constipation or diarrhea. No chest pain and no shortness of breath. Past medical history includes obstructive sleep apnea, hypertension, hypercholesterolemia and prior OH. Related Data Home Medications ?Medication ?Instructions ?Recorded ?Confirmed aspirin 81 mg tablet,delayed 81 mg PO QAM 09/02/21 08/03/24 release cetirizine 10 mg capsule (Zyrtec) 10 mg PO QPM PRN Allergy Symptoms 09/02/21 08/03/24 cinnamon bark 500 mg capsule 500 mg PO QPM 09/02/21 08/03/24 (Cinnamon) fexofenadine 60 mg tablet ([place]ootie 60 mg PO QAM 09/02/21 08/03/24 Allergy) ggrezxud-dkneowjm-waytd acid 400 1 tab PO QAM 09/02/21 08/03/24 mcg-vit K 20 mcg-lycop 300 mcg tablet (One-A-Day Men's Multivitamin) vitamin B complex 1 tab PO QAM 01/28/24 08/03/24 amlodipine 10 mg tablet 10 mg PO QPM 02/29/24 08/03/24 escitalopram oxalate 10 mg tablet 10 mg PO QAM 02/29/24 08/03/24 (Lexapro) fenofibrate 160 mg tablet 160 mg PO QAM 02/29/24 08/03/24 hydrochlorothiazide 25 mg tablet 25 mg PO QAM 02/29/24 08/03/24 losartan 100 mg tablet 100 mg PO QAM 02/29/24 08/03/24 magnesium oxide 400 mg (241.3 mg 400 mg PO QPM 02/29/24 08/03/24 magnesium) tablet metformin 500 mg tablet,extended 1,000 mg PO QPM 02/29/24 08/03/24 release 24 hr arginine 1,000 mg-B12 16.6 1 tab PO QPM 08/03/24 08/03/24 mcg-folic acid 66.6 mcg-B6 3.3 mg tablet (L-Arginine Airwoot) coenzyme Q10 100 mg capsule 100 mg PO QPM 08/03/24 08/03/24 (CoQ-10) ticagrelor 60 mg tablet (Brilinta) 90 mg PO BID 08/03/24 08/03/24 Previous Rx's ?Medication ?Instructions ?Recorded HINGED KNEE BRACE #1 ea 03/11/22 CPAP auto titrating Machine #1 ea 10/01/23 w/supplies auto titration CPAP and supplies #1 ea 12/15/23 for TJ exenatide microspheres 2 mg/0.85 2 mg (0.85 mL) SUBCUT Q7D #10.2 mL 02/11/24 mL subcutaneous auto-injector ([employer]) nitroglycerin 0.4 mg sublingual 0.4 mg sublingual Q5M PRN chest 02/11/24 tablet (Nitrostat) pain #30 tabs pantoprazole 40 mg tablet,delayed 40 mg PO BID 6 weeks #84 tabs 02/22/24 release (Protonix) atorvastatin 80 mg tablet 80 mg PO QPM #90 tabs 04/29/24 carvedilol 12.5 mg tablet 12.5 mg PO BID #90 tabs 05/16/24 Allergies Allergy/AdvReac Type Severity Reaction Status Date / Time blue dye Allergy ALGY-Hives Verified 08/03/24 12:17 Penicillins Allergy hives Verified 08/03/24 12:17 Review of Systems General: Reports: 10 or more systems reviewed and unremarkable except in HPI and below Musc: Reports: other (Left lateral rib cage tenderness) PFSH ED PFSH: Medical History History of colon polyps Celiac disease Obstructive sleep apnea CAD (coronary artery disease) History of stomach cancer Environmental and seasonal allergies Hyperlipidemia Essential hypertension GERD (gastroesophageal reflux disease) Type 2 diabetes mellitus Surgical History History of heart artery stent Hx of cholecystectomy Family History Father Diabetes Hyperlipidemia Hypertension Mother Hypertension Social History Smoking and tobacco/nicotine status: never used tobacco/nicotine Second hand smoke exposure: No Alcohol intake: current Alcohol intake frequency: holidays/special occasions only Alcohol type: beer Adopted: No Caregiver/support person: No Lives independently: Yes Household members: spouse Housing: Manufactured/Mobile home Marital status: Number of children: 2 Highest education level completed: Some College, No Degree service: Yes status: Retired branch: [employer] Physical Exam Const: COMMON NORMALS: no acute distress, patient oriented x3 and no limitations GENERAL APPEARANCE: cooperative and comfortable HENMT: COMMON NORMALS: normocephalic, atraumatic, Normal nasal mucous membranes and turbinates present, moist oral mucous membranes and oropharynx normal HEAD & SCALP: normal to inspection, normocephalic and atraumatic FACE & SINUS: normal facial exam NOSE: Normal nasal mucous membranes and turbinates present Eye: COMMON NORMALS: Equal, round and reactive pupils present, EOMs intact bilaterally and conjunctivae normal GENERAL EYE: appearance normal, both eyes and all related structures CONJUNCTIVA: Yes conjunctivae normal PUPIL: Yes Equal, round and reactive pupils present Neck/C-Spine: COMMON NORMALS: supple and no JVD Chest: CHEST: Yes tenderness (Left lateral rib cage tenderness.) other Resp: COMMON NORMALS: normal respiratory effort and clear to auscultation bilaterally AUSCULTATION: clear to auscultation bilaterally Cardio: COMMON NORMALS: no JVD, regular rate, regular rhythm, No gallops present (Cardio), No murmurs present (Cardio) and No rub (Cardio) RATE: regular rate RHYTHM: regular rhythm GI: COMMON NORMALS: Normal to inspection, nondistended, normoactive bowel sounds present, Soft to palpation and non-tender AUSCULTATION: Yes normoactive bowel sounds PALPATION: Yes Soft to palpation : COMMON NORMALS: Yes no CVA tenderness BLADDER/KIDNEY EXAM: Yes no CVA tenderness Back/Pelvis: COMMON NORMALS: no CVA tenderness and thoracic and lumbar spine normal to inspection Extremity: COMMON NORMALS: normal to inspection Neuro: COMMON NORMALS: patient oriented x3 and CN's II-XII intact bilaterally Psych: COMMON NORMALS: mental status grossly normal, Normal thought process present and cooperative THOUGHT PROCESS: Normal thought process present Skin: COMMON NORMALS: no rashes or lesions noted, turgor normal and no jaundice GENERAL SKIN EXAM: no rashes or lesions noted and turgor normal Course Vital Signs: Vital signs: Vital Signs Temperature 97.8 F 08/03/24 12:16 Pulse Rate 63 08/03/24 12:16 Respiratory Rate 16 08/03/24 12:16 Blood Pressure 128/80 08/03/24 12:16 Pulse Oximetry 97 08/03/24 12:16 Oxygen Delivery Me thod Room Air 08/03/24 12:16 MDM - General Adult Medical Decision Making EKG revealed sinus rhythm with no ST segment abnormalities. Chest x-ray was normal. Left rib films did not reveal any fractures. These were read by the radiologist. CBC was normal. CMP revealed a blood sugar of 314. Lipase 57. Patient was given 60 mg of Toradol IM. This did relieve his discomfort. This does appear to be chest wall pain. I recommended he take ibuprofen at home and follow-up with his primary care provider within 1 week for recheck. He was discharged in stable condition. Lab Data 08/03/24 12:22 08/03/24 12:22 Radiology Impressions Ribs X-Ray 08/03/24 13:13 IMPRESSION: 1. Negative LEFT rib study. No acute cardiopulmonary process identified. Laboratory Results WBC 6.32 10^3/uL (3.29-11.43) 08/03/24 12:22 RBC 5.12 10^6/uL (3.85-5.65) 08/03/24 12:22 Hgb 16.80 g/dL (11.27-16.99) 08/03/24 12:22 Hct 49.9 % (37-53) 08/03/24 12:22 MCV 97.5 fl (82-101) 08/03/24 12:22 MCH 32.8 pg (27-33) 08/03/24 12:22 MCHC 33.7 g/dL (30-55) 08/03/24 12:22 RDW 12.8 % (12.1-15.1) 08/03/24 12:22 Plt Count 129 10^3/cmm (157-399) L 08/03/24 12:22 MPV 11.0 fL (7.4-10.4) H 08/03/24 12:22 Neut % (Auto) 54.4 % 08/03/24 12:22 Lymph % (Auto) 30.2 % 08/03/24 12:22 [place] % (Auto) 7.6 % 08/03/24 12:22 Eos % (Auto) 6.6 % 08/03/24 12:22 Baso % (Auto) 0.6 % 08/03/24 12:22 Neut # (Auto) 3.43 10^3/uL (1.8-7.7) 08/03/24 12:22 Lymph # (Auto) 1.9 10^3/uL (0.8-4.8) 08/03/24 12:22 [place] # (Auto) 0.5 10^3/uL (0.2-0.9) 08/03/24 12:22 Eos # (Auto) 0.4 10^3/uL (0.0-0.8) 08/03/24 12:22 Baso # (Auto) 0.0 10^3/uL (0.0-0.1) 08/03/24 12:22 Nucleated RBC % (auto) 0 % 08/03/24 12:22 Nucleated RBCs # 0.0 /100WBC 08/03/24 12:22 Sodium 139 mmol/L (136-145) 08/03/24 12:22 Potassium 4.1 mmol/L (3.5-5.1) 08/03/24 12:22 Chloride 102 mmol/L (98-107) 08/03/24 12:22 Carbon Dioxide 24 mmol/L (22-29) 08/03/24 12:22 Anion Gap 17.1 (5-19) 08/03/24 12:22 BUN 19 mg/dL (8-23) 08/03/24 12:22 Creatinine 1.1 mg/dL (0.7-1.2) 08/03/24 12:22 GFR Calculation 68.3 mL/min (90-130) L 08/03/24 12:22 Glucose 314 mg/dL (65-115) H 08/03/24 12:22 Calculated Osmolality 302 mOsm/kg (285-295) H 08/03/24 12:22 Calcium 9.5 mg/dL (8.5-10.5) 08/03/24 12:22 Total Bilirubin 0.7 mg/dL (0.15-1.2) 08/03/24 12:22 AST 33 U/L (0-40) 08/03/24 12:22 ALT 37 U/L (0-41) 08/03/24 12:22 Alkaline Phosphatase 66 U/L (40-130) 08/03/24 12:22 Total Protein 7.5 g/dL (6.6-8.7) 08/03/24 12:22 Albumin 4.3 g/dL (3.5-5.2) 08/03/24 12:22 Globulin 3.2 g/dL (1.3-4.6) 08/03/24 12:22 Lipase 57 U/L (13-60) 08/03/24 12:22 All radiology interpretation(s) finalized by discharge Discharge Plan Discharge Patient Disposition: Home Clinical Impression: Rib pain on left side Condition: Stable Prescriptions: No Action (DME) HINGED KNEE BRACE See Rx Instructions .Route .MEDSUPPLY Qty: 1 0RF Rx Instructions: As directed vitamin B complex Tablet 1 tab PO QAM pantoprazole [Protonix] 40 mg tablet,delayed release (DR/EC) 40 mg PO BID 42 Days Qty: 84 1RF fexofenadine [Tootie Allergy] 60 mg tablet 60 mg PO QAM aspirin 81 mg tablet,delayed release (DR/EC) 81 mg PO QAM One-A-Day Men's Multivitamin 400-20-300 mcg tablet 1 tab PO QAM Zyrtec 10 mg capsule 10 mg PO QPM PRN (Reason: Allergy Symptoms) cinnamon bark [Cinnamon] 500 mg capsule 500 mg PO QPM atorvastatin 80 mg tablet 80 mg PO QPM Qty: 90 3RF Bydureon BCise 2 mg/0.85 mL auto-injector 2 mg SUBCUT Q7D Qty: 10.2 1RF Rx Instructions: Saturdays nitroglycerin [Nitrostat] 0.4 mg tablet, sublingual 0.4 mg sublingual Q5M PRN (Reason: chest pain) Qty: 30 2RF Rx Instructions: do not exceed 3 doses per episode (DME) CPAP auto titrating Machine w/supplies See Rx Instructions .Route .MEDSUPPLY Qty: 1 0RF Rx Instructions: As directed 99 months CPAP auto titrating machine w/supplies 6-20cm (DME) auto titration CPAP and supplies for TJ See Rx Instructions .Route .MEDSUPPLY Qty: 1 0RF Rx Instructions: auto titration CPAP and supplies for TJ, settings 5-20 carvedilol 12.5 mg tablet 12.5 mg PO BID Qty: 90 1RF Rx Instructions: must administer with a meal/food coenzyme Q10 [CoQ-10] 100 mg Capsule 100 mg PO QPM L-Arginine Men's Health 1,000 mg-16.6 mcg-66.6 mcg Tablet 1 tab PO QPM ticagrelor [Brilinta] 60 mg tablet 90 mg PO BID magnesium oxide 400 mg (241.3 mg magnesium) tablet 400 mg PO QPM amlodipine 10 mg tablet 10 mg PO QPM hydrochlorothiazide 25 mg tablet 25 mg PO QAM losartan 100 mg tablet 100 mg PO QAM metformin 500 mg tablet extended release 24 hr 1,000 mg PO QPM escitalopram oxalate [Lexapro] 10 mg tablet 10 mg PO QAM fenofibrate 160 mg tablet 160 mg PO QAM Discharge Orders: Discharge ED (Routine); Ordered 08/03/24 Ordered By: Russel Anderson Referrals: Antonia Allen FNP-C [Primary Care Provider, Family Practice] Patient Instructions: Thoracic Pain (ED) Print Language: Turkish Coding Level of Care Code ED Quality Tech for Angel Garza
[2024-08-03 14:54] VITALS: BP 118/69; PULSE 79; O2SAT 99
== END 2024-08-03 14:54 | disposition home or self-care (01) ==
PROVIDERS: Emergency Medicine; Emergency Provider Emergency Medicine; PCP Nurse Practitioner Family
DX: R07.81 Pleurodynia (principal); Z79.82 Long term (current) use of aspirin; Z79.84 Long term (current) use of oral hypoglycemic drugs; E11.9 Type 2 diabetes mellitus without complications; I25.10 Atherosclerotic heart disease of native coronary artery without angina pectoris; E78.5 Hyperlipidemia, unspecified; I10 Essential (primary) hypertension; Z85.028 Personal history of other malignant neoplasm of stomach
CPT/HCPCS: 36415; 71101; 80053; 83690; 85025; 93005; 96372; 99285; J1885

== ENCOUNTER → 2024-09-06 09:17 | Outpatient (BNVA) | payer BC, SELFPAY | PROVIDERS: PCP Nurse Practitioner Family; Visit Provider Nurse Practitioner Family | DX: E11.9 Type 2 diabetes mellitus without complications (principal) | CPT/HCPCS: 80053; 80061; 83036; 85025 ==

== ENCOUNTER 2024-09-13 14:18 | Outpatient (CLI) | payer BC, SELFPAY ==
--- NOTE | 2024-09-13 14:45 | USCV_ITS ---
Ho Lee Age: 59 Gender: M : 1965 Exam Date: 09/13/2024 14:35 Ordering Phys: Antonia Allen-Jodie Technologist: LATOSHA Exam Location: [facility] – [place] Indication: swelling/pain HISTORY: LEFT Lower extremity swelling. LEFT Lower extremity pain. PROCEDURES: Venous duplex imaging was performed in only the left lower extremity. The following venous structures were evaluated: common femoral vein, profunda vein, proximal portion of the greater saphenous vein, superficial femoral vein, and the popliteal vein. In addition, the posterior tibial and peroneal trunk were evaluated. FINDINGS: Normal 2-D Doppler and augmentation and compressibility throughout the lower extremity venous structures. Additional imaging through the proximal calf veins also reveals no thrombus. Limited evaluation of the greater saphenous vein is patent with no thrombus. CONCLUSIONS No DVT left lower extremity. Dr. Amber Campos DO (Electronically Signed) Final Date: 13 September 2024 15:08 S
== END 2024-09-13 14:19 | disposition home or self-care (01) ==
PROVIDERS: PCP Nurse Practitioner Family; Visit Provider Nurse Practitioner Family
DX: M79.605 Pain in left leg (principal)
CPT/HCPCS: 93971

== ENCOUNTER 2024-11-28 07:38 | Outpatient (CLI) | payer BC, SELFPAY ==
--- NOTE | 2024-11-28 08:00 | USCV_ITS ---
Ho Lee Age: 59 Gender: M : 1965 Exam Date: 11/28/2024 08:00 Ordering Phys: Antonia Allen [employer]ITARY LAWYER-Jodie Technologist: SVETA Exam Location: [facility] [place] Indication: swelling HISTORY: Lower extremity swelling. PROCEDURES: Venous duplex imaging was performed in bilateral lower extremities. The following venous structures were evaluated: common femoral vein, profunda vein, proximal portion of the greater saphenous vein, superficial femoral vein, and the popliteal vein. In addition, the posterior tibial and peroneal trunk were evaluated. FINDINGS: Normal 2-D Doppler and augmentation and compressibility throughout the lower extremity venous structures. Additional imaging through the proximal calf veins also reveals no thrombus. Limited evaluation of the greater saphenous vein is patent with no thrombus. CONCLUSIONS No evidence of right lower extremity DVT. No evidence of left lower extremity DVT. Prominent lymh node Right groin probably reactive measuring 2.4 x 1.3cm Bipin Baez MD (Electronically Signed) Final Date: 28 November 2024 09:59 S
== END 2024-11-28 07:39 | disposition home or self-care (01) ==
LOC: RAD 07:39
PROVIDERS: PCP Nurse Practitioner Family; Visit Provider Nurse Practitioner Family
DX: R22.43 Localized swelling, mass and lump, lower limb, bilateral (principal); M79.89 Other specified soft tissue disorders; I73.9 Peripheral vascular disease, unspecified; M79.662 Pain in left lower leg
CPT/HCPCS: 93970

== ENCOUNTER 2024-12-02 15:12 | Outpatient (CLI) | payer BC, SELFPAY ==
--- NOTE | 2024-12-02 15:45 | USR_ITS ---
PROCEDURE INFORMATION: Exam: US Duplex Bilateral Lower Extremity Arteries Exam date and time: 12/02/2024 3:43 PM Age: 59 years old Clinical indication: Swelling (edema) of limb TECHNIQUE: Imaging protocol: Real-time ultrasound scan of the arteries of the bilateral lower extremities with 2-D go scale, color Doppler flow and spectral waveform analysis. Images documented and saved. COMPARISON: [place] [id number] 11/28/2024 8:00 AM FINDINGS: Right common femoral artery: No occlusion or significant stenosis. Normal waveform. Right superficial femoral artery: No occlusion or significant stenosis. Normal waveform. Right popliteal artery: No occlusion or significant stenosis. Normal waveform. Right calf/foot arteries: No occlusion or significant stenosis in the visualized posterior tibial and dorsalis pedis arteries. Normal waveforms. Dorsalis pedis artery is patent. Right CALLY: 1.37 Left common femoral artery: No occlusion or significant stenosis. Normal waveform. Left superficial femoral artery: No occlusion or significant stenosis. Normal waveform. Left popliteal artery: No occlusion or significant stenosis. Normal waveform. Left calf/foot arteries: No occlusion or significant stenosis in the visualized posterior tibial and dorsalis pedis Normal waveforms. Dorsalis pedis artery is patent. Left CALLY: 1.19 US/[place] [id number] IMPRESSION: No stenosis or occlusion.
== END 2024-12-02 15:13 | disposition home or self-care (01) ==
LOC: RAD 15:13
PROVIDERS: PCP Nurse Practitioner Family; Visit Provider Nurse Practitioner Family
DX: R22.43 Localized swelling, mass and lump, lower limb, bilateral (principal)
CPT/HCPCS: 93925

== ENCOUNTER → 2024-12-22 11:50 | Outpatient (BNVA) | payer BC, SELFPAY | PROVIDERS: PCP Nurse Practitioner Family; Visit Provider Nurse Practitioner Family | DX: E11.9 Type 2 diabetes mellitus without complications (principal) | CPT/HCPCS: 80053; 80061; 83036; 84443; 85025 ==

== ENCOUNTER 2025-03-20 18:54 | Emergency (ER) | payer BC, SELFPAY ==
--- OUTSIDE RECORDS SUMMARY | 2025-03-20 18:57 | XMS_ITS | Patient Health Record ---
Author Organization [facility] Address [address] [place] [address] Care Team Providers Care Care Rep Name Role Phone Migration, Provider Primary Care Provider Diane chinchilla Reason For Referral No Information Plan Of Treatment No Information
[2025-03-20 18:59] VITALS: BP 132/85; PULSE 72; RESP 18; TEMP 36.5; O2SAT 96; BMI 37.5
--- NOTE | 2025-03-20 19:24 | XRR_ITS ---
PROCEDURE INFORMATION: Exam: XR Left Hand Exam date and time: 03/20/2025 7:26 PM Age: 60 years old Clinical indication: Injury or trauma; Other: Left thumb laceration; Injury details: C/O L thumb lac. PT reports he was using his new deer slicer tonight and got his finger in it. PT has approx 3 cm lac - bleeding controlled in triage. Gauze and coban applied. TECHNIQUE: Imaging protocol: Radiologic exam of the left hand. Views: 3 or more views. COMPARISON: No relevant prior studies available. FINDINGS: Bones/joints: No definite acute fracture or foreign body. Soft tissues: See Bones/joints finding. XR/XR hand LT min 3V* [id number] IMPRESSION: No definite acute fracture or foreign body.
[2025-03-20] MEDS: tetanus-dipt-pertussis 0.5 mL SDV IM (19:40)
--- NOTE | 2025-03-20 19:55 | W.ED.WOUNDLC ---
HPI - Wound/Laceration General: Chief Complaint: Wound/Laceration Stated Complaint: LT thumb laceration Time Seen by Provider: 03/20/25 19:22 History of Present Illness: Patient is a 60-year-old gentleman with history of hypertension presents to the ED after a left thumb laceration. Context: Patient was using a deer slicer when he caught his left thumb, MIP on dorsum in a horizontal fashion, approximately 3 cm. His tetanus is not up-to-date. This occurred just prior to arrival. No sensation changes. Has full range of motion. Pain is local. Bleeding is controlled by triage. Associated symptoms: Denies chills, fever(s), nausea or vomiting Related Data Home Medications ?Medication ?Instructions ?Recorded ?Confirmed aspirin 81 mg tablet,delayed 81 mg PO QAM 09/02/21 12/22/24 release cetirizine 10 mg capsule (Zyrtec) 10 mg PO QPM PRN Allergy Symptoms 09/02/21 12/22/24 cinnamon bark 500 mg capsule 500 mg PO QPM 09/02/21 12/22/24 (Cinnamon) fexofenadine 60 mg tablet (Tootie 60 mg PO QAM 09/02/21 12/22/24 Allergy) rebhpjpn-[id number]-oaphq acid 400 1 tab PO QAM 09/02/21 12/22/24 mcg-vit K 20 mcg-lycop 300 mcg tablet (One-A-Day Men's Multivitamin) vitamin B complex 1 tab PO QAM 01/28/24 12/22/24 magnesium oxide 400 mg (241.3 mg 400 mg PO QPM 02/29/24 12/22/24 magnesium) tablet arginine 1,000 mg-B12 16.6 1 tab PO QPM 08/03/24 12/22/24 mcg-folic acid 66.6 mcg-B6 3.3 mg tablet (L-Arginine [employer]) coenzyme Q10 100 mg capsule 100 mg PO QPM 08/03/24 12/22/24 (CoQ-10) ticagrelor 60 mg tablet (Brilinta) 90 mg PO BID 08/03/24 12/22/24 Previous Rx's ?Medication ?Instructions ?Recorded HINGED KNEE BRACE #1 ea 03/11/22 CPAP auto titrating Machine #1 ea 10/01/23 w/supplies auto titration CPAP and supplies #1 ea 12/15/23 for TJ chlorthalidone 25 mg tablet 25 mg PO DAILY 30 days #30 tabs 11/14/24 nitroglycerin 0.4 mg sublingual 0.4 mg sublingual Q5M PRN chest 11/14/24 tablet (Nitrostat) pain #30 tabs diabetic shoes with 3 pairs of #1 ea 12/16/24 inserts amlodipine 10 mg tablet 10 mg PO QPM #90 tabs 12/22/24 atorvastatin 80 mg tablet 80 mg PO QPM #90 tabs 12/22/24 carvedilol 12.5 mg tablet 12.5 mg PO BID #90 tabs 12/22/24 escitalopram oxalate 10 mg tablet 10 mg PO QAM #90 tabs 12/22/24 (Lexapro) fenofibrate 160 mg tablet 160 mg PO QAM #90 tabs 12/22/24 losartan 100 mg tablet 100 mg PO QAM #90 tabs 12/22/24 metformin 500 mg tablet,extended 1,000 mg (2 x 500 mg) PO BID #360 12/22/24 release 24 hr tabs pantoprazole 40 mg tablet,delayed 40 mg PO BID 6 weeks #84 tabs 12/22/24 release (Protonix) semaglutide 1 mg/dose (4 mg/3 mL) 1 mg (0.75 mL) SUBCUT .once weekly 01/30/25 subcutaneous pen injector #3 mL cephalexin 500 mg capsule 500 mg PO TID 10 days #30 caps 03/20/25 Allergies Allergy/AdvReac Type Severity Reaction Status Date / Time blue dye Allergy ALGY-Hives Verified 03/20/25 19:09 Penicillins Allergy hives Verified 03/20/25 19:09 Review of Systems Const: Denies: fever(s), chills, body aches or change in appetite Eyes: Denies: change in vision, eye discharge or eye redness ENMT: Denies: throat pain, hoarseness, ear or mastoid pain, ear discharge, nasal discharge or nasal congestion Card: Denies: chest pain, palpitations, irregular heart rhythm or edema Resp: Denies: dyspnea, productive cough, non-productive cough or wheezing GI: Denies: abdominal pain, nausea, vomiting, diarrhea, constipation or hematochezia : Denies: dysuria, urinary frequency, urinary urgency, urinary hesitancy or hematuria Musc: Reports: extremity swelling; Denies: joint swelling, joint redness, joint warmth or joint stiffness Skin/Breast: Reports: new lesions; Denies: rash Neuro: Denies: headache(s) Psych: Denies: suicidal ideation or homicidal ideation Joshua/Lymph: Denies: enlarged lymph nodes or tender lymph nodes PFSH ED PFSH: Medical History (Updated 03/20/25 @ 20:46 by ZEHRA Fairchild) History of colon polyps Celiac disease Obstructive sleep apnea CAD (coronary artery disease) History of stomach cancer Environmental and seasonal allergies Hyperlipidemia Essential hypertension GERD (gastroesophageal reflux disease) Type 2 diabetes mellitus Surgical History History of heart artery stent Hx of cholecystectomy Family History Father Diabetes Hyperlipidemia Hypertension Mother Hypertension Social History Smoking and tobacco/nicotine status: current every day tobacco/nicotine user Second hand smoke exposure: No Alcohol intake: current Alcohol intake frequency: holidays/special occasions only Alcohol type: beer Adopted: No Caregiver/support person: No Lives independently: Yes Household members: spouse Housing: Manufactured/Mobile home Marital status: Number of children: 2 Highest education level completed: Some College, No Degree service: Yes status: Retired branch: [employer] Physical Exam Const: COMMON NORMALS: no acute distress and patient oriented x3 GENERAL APPEARANCE: cooperative HENMT: COMMON NORMALS: normocephalic, moist oral mucous membranes and oropharynx normal HEAD & SCALP: normocephalic NOSE: No nasal discharge present THROAT: tonsils normal Eye: COMMON NORMALS: Equal, round and reactive pupils present GENERAL EYE: appearance normal, both eyes and all related structures PUPIL: Yes Equal, round and reactive pupils present Neck/C-Spine: GENERAL: Yes normal visual inspection CERVICAL SPINE: Yes cervical ROM normal and No Cervical spine tenderness Lymph: LYMPHATIC: no lymphadenopathy noted Chest: COMMONS NORMALS: normal inspection of the chest Resp: COMMON NORMALS: normal respiratory effort and clear to auscultation bilaterally AUSCULTATION: clear to auscultation bilaterally Cardio: COMMON NORMALS: regular rate, regular rhythm and No murmurs present (Cardio) RATE: regular rate RHYTHM: regular rhythm GI: COMMON NORMALS: Normal to inspection, nondistended, normoactive bowel sounds present, Soft to palpation and non-tender PALPATION: Yes Soft to palpation and Yes Hernia present : COMMON NORMALS: Yes no CVA tenderness BLADDER/KIDNEY EXAM: Yes no CVA tenderness Back/Pelvis: COMMON NORMALS: no CVA tenderness and thoracic and lumbar spine normal to inspection Extremity: GENERAL: No cyanosis and Yes edema Neuro: COMMON NORMALS: patient oriented x3, moves all extremities, no focal motor deficits and gait normal SPEECH: speech normal Psych: COMMON NORMALS: mental status grossly normal Skin: SKIN IMAGES (MALE):  1. 3 cm laceration dorsum mip Procedures Laceration Laceration 1: Site: hand (left thumb) Side (If applicable): left Size (cm): 3 Description: linear and flap Depth: simple, single layer Local Anesthetic: lidocaine 1% Amount of anesthesia used (mL): 8 Pre-repair: wound explored, irrigated extensively and deep structures intact Skin layer closed with: nylon Size (cm): 4-0 Number of sutures: 5 Technique: simple, interrupted Course Vital Signs: Vital signs: Vital Signs Temperature 97.7 F 03/20/25 18:59 Pulse Rate 65 03/20/25 21:10 Respiratory Rate 18 03/20/25 18:59 Blood Pressure 139/88 03/20/25 21:10 Pulse Oximetry 93 03/20/25 21:10 Oxygen Delivery Me thod Room Air 03/20/25 18:59 MDM - Wound/Laceration Medical Decision Making Patient is a 60-year-old gentleman presents with laceration to the left mid distal thumb just below the fingernail. Fingernail was not involved. Patient was anesthetized/digital block. The 3 cm laceration required 5 sutures, with a redo on one of them due to tightening. Good control of bleeding was achieved after suturing. Medical Records I reviewed the patient's medical records. Lab Data Radiology Impressions Hand X-Ray 03/20/25 19:24 IMPRESSION: No definite acute fracture or foreign body. All radiology interpretation(s) finalized by discharge Discharge Plan Discharge Patient Disposition: Home Clinical Impression: Laceration of left thumb Condition: Stable Prescriptions: New cephalexin 500 mg capsule 500 mg PO TID 10 Days Qty: 30 0RF No Action (DME) HINGED KNEE BRACE See Rx Instructions .Route .MEDSUPPLY Qty: 1 0RF Rx Instructions: As directed vitamin B complex Tablet 1 tab PO QAM chlorthalidone 25 mg tablet 25 mg PO DAILY 30 Days Qty: 30 5RF nitroglycerin [Nitrostat] 0.4 mg tablet, sublingual 0.4 mg sublingual Q5M PRN (Reason: chest pain) Qty: 30 2RF Rx Instructions: do not exceed 3 doses per episode (DME) diabetic shoes with 3 pairs of inserts See Rx Instructions .Route .MEDSUPPLY Qty: 1 0RF Rx Instructions: As directed to HOME due to BS insurance fexofenadine [Tootie Allergy] 60 mg tablet 60 mg PO QAM aspirin 81 mg tablet,delayed release (DR/EC) 81 mg PO QAM One-A-Day Men's Multivitamin 400-20-300 mcg tablet 1 tab PO QAM Zyrtec 10 mg capsule 10 mg PO QPM PRN (Reason: Allergy Symptoms) cinnamon bark [Cinnamon] 500 mg capsule 500 mg PO QPM metformin 500 mg tablet extended release 24 hr 1,000 mg PO BID Qty: 360 1RF losartan 100 mg tablet 100 mg PO QAM Qty: 90 1RF fenofibrate 160 mg tablet 160 mg PO QAM Qty: 90 1RF escitalopram oxalate [Lexapro] 10 mg tablet 10 mg PO QAM Qty: 90 1RF carvedilol 12.5 mg tablet 12.5 mg PO BID Qty: 90 1RF Rx Instructions: must administer with a meal/food amlodipine 10 mg tablet 10 mg PO QPM Qty: 90 1RF pantoprazole [Protonix] 40 mg tablet,delayed release (DR/EC) 40 mg PO BID 42 Days Qty: 84 1RF atorvastatin 80 mg tablet 80 mg PO QPM Qty: 90 3RF (DME) CPAP auto titrating Machine w/supplies See Rx Instructions .Route .MEDSUPPLY Qty: 1 0RF Rx Instructions: As directed 99 months CPAP auto titrating machine w/supplies 6-20cm (DME) auto titration CPAP and supplies for TJ See Rx Instructions .Route .MEDSUPPLY Qty: 1 0RF Rx Instructions: auto titration CPAP and supplies for TJ, settings 5-20 semaglutide 1 mg/dose (4 mg/3 mL) pen injector 1 mg SUBCUT .once weekly Qty: 3 2RF coenzyme Q10 [CoQ-10] 100 mg Capsule 100 mg PO QPM L-Arginine Men's Health 1,000 mg-16.6 mcg-66.6 mcg Tablet 1 tab PO QPM ticagrelor [Brilinta] 60 mg tablet 90 mg PO BID magnesium oxide 400 mg (241.3 mg magnesium) tablet 400 mg PO QPM Discharge Orders: Discharge ED (Routine); Ordered 03/20/25 Ordered By: Patricia Prado Referrals: Antonia Allen FNP-C [Primary Care Provider, Family Practice] Discharge Diet: Usual diet Discharge Activity: Resume usual activity Patient Instructions: Laceration (ED), Patient Portal & Bennett Instructions, Opioid Safety, Pain Management Activity Restrictions/Additional Instructions: - Wound care: Clean with antibacterial soap at least daily. The first 5 days: Wrap with the Xeroform or Vaseline gauze, nonadherent dressing, and secure with Coban carefully. You do not need to tighten this. - Icing this area will help with the swelling and the pain. I would definitely ice this tonight. 20 minutes on, 20 minutes off - Tylenol and ibuprofen for pain - You did receive a tetanus shot today - you will be sent home with hydrocodone x 2, and received 1 here. - You were sent home with cephalexin also called Keflex. This is an antibiotic for empiric coverage - you are over a joint space and therefore you are getting a full dose of cephalexin/Keflex - Make sure you retrieve your cephalexin at the pharmacy. Take a probiotic daily, or eat active culture yogurt to avoid infectious diarrhea. This will not affect your medications. - Suture removal: 10 days. You may make an appointment with your primary or return here for new visit - Return to ED: If you have redness, outside of the area with the sutures, increasing pain, fever greater than 100.4 ?F Thank you for choosing [facility] for your healthcare needs today. You have been screened and evaluated and felt safe for discharge. Health conditions do change or evolve sometimes and as such it is important that you follow up with your Primary Doctor to be re checked, 3-5 days is a general good time frame for follow up. You are always welcome to return to the ED for re assessment if your symptoms are worsening or you have new concerns Print Language: Anguillan Coding Level of Care Code ED Ward Clerk for Angel Garza
[2025-03-20] MEDS: HYDROcodone-acetaminophen 5-325 mg Tablet 1 TAB PO (21:06)
[2025-03-20] MEDS: HYDROcodone-acetaminophen 10-325 mg Tablet 2 TAB PO (21:07)
[2025-03-20 21:10] VITALS: BP 139/88; PULSE 65; O2SAT 93
== END 2025-03-20 21:12 | disposition home or self-care (01) ==
PROVIDERS: Emergency Provider Physician Assistant; PCP Nurse Practitioner Family
DX: S61.012A Laceration without foreign body of left thumb without damage to nail, initial encounter (principal); Z79.82 Long term (current) use of aspirin; Z79.84 Long term (current) use of oral hypoglycemic drugs; Z72.0 Tobacco use; E78.5 Hyperlipidemia, unspecified; I25.10 Atherosclerotic heart disease of native coronary artery without angina pectoris; E11.9 Type 2 diabetes mellitus without complications; I10 Essential (primary) hypertension; Z85.028 Personal history of other malignant neoplasm of stomach; W26.8XXA Contact with other sharp object(s), not elsewhere classified, initial encounter
CPT/HCPCS: 12002; 73130; 90715; 99283; J9999